=== PATIENT | female | born 1980 | race Caucasian/White ===

== ENCOUNTER 2016-07-12 14:30 | Emergency (ER) | payer MEDICAID ==
[2016-07-12] MEDS ORDERED: Prochlorperazine 10 MG/2 ML SDV IM ONE (14:43)
[2016-07-12] MEDS ORDERED: Ketorolac 30 MG/ML SDV IVPUSH ONE (14:43)
[2016-07-12] MEDS ORDERED: diphenhydrAMINE 50 MG/ML SDV IVPUSH ONE (14:43)
[2016-07-12] MEDS ORDERED: Sodium Chloride 0.9% 10 ML Syringe FLUSH PRN ×2 (14:43→14:48)
[2016-07-12] MEDS ORDERED: Sodium Chloride 0.9% 2.5 ML Syringe FLUSH PRN ×2 (14:43→14:48)
[2016-07-12] MEDS ORDERED: LORazepam 2 MG/ML MDV IVPUSH ONE (14:43)
[2016-07-12] MEDS ORDERED: Sodium Chloride 0.9% 1,000 ML IV ONE (14:43)
--- NOTE | 2016-07-12 14:47 | EDM.PDOC ---
ED HPI HEADACHE COMPLAINT - General Chief Complaint: Headache Stated Complaint: HEADACHE Time Seen by Provider: 07/12/16 14:42 Source of Information: Reports: Patient, Old records History Limitations: Reports: No limitations - History of Present Illness INITIAL COMMENTS - FREE TEXT/NARRATIVE: HISTORY AND PHYSICAL: [35-year-old female presenting with migraine headache] History of Present Illness: [Long-standing history of migraines. This headache began last night about 9:00pm Patient has had emesis several times. She is photophobic. She does take Excedrin Migraine at home. She has never been referred to a neurologist She has had CT scans in the past were negative] Review of Systems: As per history of present illness and below otherwise all systems reviewed and negative. Past medical history: As per history of present illness and as reviewed below otherwise noncontributory. Surgical history: As per history of present illness and as reviewed below otherwise noncontributory. Social history: No reported history of drug or alcohol abuse. Family history: As per history of present illness and as reviewed below otherwise noncontributory. Physical exam: Alert female squinting from the light HEENT: Atraumatic, normocehpalic, pupils reactive, negative for conjunctival pallor or scleral icterus, mucous membranes moist, throat clear, neck supple, nontender, trachea midline. Photophobic Lungs: Clear to auscultation, breath sounds equal bilaterally, chest non tender. Heart: S1S2, regular, negative for clicks, rubs, or JVD. Abdomen: Soft, nondistended, nontender. Negative for masses or hepatossplenmegaly. Negative for costovertebral tenderness. Nausea Pelvis: Stable nontender. Genitourinary: Deferred. Rectal: Deferred Extremities: Atraumatic, negative for cords or calf pain. Neurovascular unremarkable. Neuro: Awake, alert, oriented. Cranial nerves II through XII unremarkable. Cerebellum unremarkable. Motor and sensory unremarkable throughout. Exam nonfocal. Patient is improved with the therapy that she was given be discharged to referred to Dr. Flash Degroot neurology Diagnostics: [] Therapeutics: [Benadryl 25 mg IV saline 1Liter, ativan 1 mg Compazine 5 mg IM] Impression: [Migraine] Plan: [Referral to Dr. Anayeli Degroot Home and sleep Definitive disposition and diagnosis as appropriate pending reevaluation and review of above. Timing/Duration: Reports: hour(s): Location: Reports: generalized Severity: Reports: similar to past headaches Associated Symptoms: Reports: photophobia - Related Data Allergies/ADRs: Allergies Allergy/AdvReac Type Severity Reaction Status Date / Time Sulfa (Sulfonamide Allergy Hives Verified 07/12/16 14:38 Antibiotics) tetanus and diphtheria Allergy Other Verified 07/12/16 14:38 toxoids Home Meds: Home Meds Esomeprazole [NexIUM] ONETIME 07/12/16 [History] Social & Family History - Recreational Drug Use Recreational Drug Use: No ED ROS GENERAL - Review of Systems Review Of Systems: ROS reveals no pertinent complaints other than HPI. - Physical Exam Exam: See Below (See dictation) Course - Vital Signs Last Recorded V/S: Last Vital Signs Temp 35.8 C 07/12/16 14:39 Pulse 75 07/12/16 14:39 Resp 18 07/12/16 14:39 BP 165/91 H 07/12/16 14:39 Pulse Ox 98 07/12/16 14:39 - Orders/Labs/Meds Orders: Active Orders 24 hr Category Date Time Status Oxygen Therapy, ED [RC] ASDIRECTED Care 07/12/16 14:43 Active Oxygen Therapy, ED [RC] ASDIRECTED Care 07/12/16 14:48 Active COMPREHENSIVE METABOLIC PN,CMP [CHEM] Stat Lab 07/12/16 14:50 Received Sodium Chloride 0.9% [Normal Saline] 1,000 ml Med 07/12/16 14:43 Active IV STAT Sodium Chloride 0.9% [Saline Flush] Med 07/12/16 14:43 Active 10 ml FLUSH ASDIRECTED PRN Sodium Chloride 0.9% [Saline Flush] Med 07/12/16 14:48 Active 10 ml FLUSH ASDIRECTED PRN Sodium Chloride 0.9% [Saline Flush] Med 07/12/16 14:43 Active 2.5 ml FLUSH ASDIRECTED PRN Sodium Chloride 0.9% [Saline Flush] Med 07/12/16 14:48 Active 2.5 ml FLUSH ASDIRECTED PRN Saline Lock Insert [OM.PC] Stat Oth 07/12/16 14:43 Ordered Saline Lock Insert [OM.PC] Stat Oth 07/12/16 14:48 Ordered Medication Orders Sodium Chloride (Normal Saline) 1,000 mls @ 999 mls/hr IV STAT ONE Stop: 07/12/16 15:43 Last Admin: 07/12/16 15:05 Dose: 999 mls/hr Sodium Chloride (Saline Flush) 10 ml FLUSH ASDIRECTED PRN PRN Reason: Keep Vein Open Sodium Chloride (Saline Flush) 2.5 ml FLUSH ASDIRECTED PRN PRN Reason: Keep Vein Open Sodium Chloride (Saline Flush) 10 ml FLUSH ASDIRECTED PRN PRN Reason: Keep Vein Open Sodium Chloride (Saline Flush) 2.5 ml FLUSH ASDIRECTED PRN PRN Reason: Keep Vein Open Labs: Laboratory Tests 07/12/16 Range/Units 14:50 WBC 8.80 (4.0-11.0) K/uL RBC 5.66 (4.30-5.90) M/uL Hgb 16.3 H (12.0-16.0) g/dL Hct 48.3 H (36.0-46.0) % MCV 85.3 (80.0-98.0) fL MCH 28.8 (27.0-32.0) pg MCHC 33.7 (31.0-37.0) g/dL RDW Std Deviation 41.3 (28.0-62.0) fl RDW Coeff of Sofia 13 (11.0-15.0) % Plt Count 448 H (150-400) K/uL MPV 9.80 (7.40-12.00) fL Neut % (Auto) 56.9 (48.0-80.0) % Lymph % (Auto) 34.8 (16.0-40.0) % Patrick % (Auto) 7.4 (0.0-15.0) % Eos % (Auto) 0.8 (0.0-7.0) % Baso % (Auto) 0.1 (0.0-1.5) % Neut # (Auto) 5.0 (1.4-5.7) K/uL Lymph # (Auto) 3.1 H (0.6-2.4) K/uL Patrick # (Auto) 0.7 (0.0-0.8) K/uL Eos # (Auto) 0.1 (0.0-0.7) K/uL Baso # (Auto) 0.0 (0.0-0.1) K/uL Nucleated RBC % 0.0 /100WBC Nucleated RBCs # 0 K/uL Meds: Medications Generic Name Dose Route Start Last Admin Trade Name Freq PRN Reason Stop Dose Admin Sodium Chloride 1,000 mls @ 999 mls/hr 07/12/16 14:43 07/12/16 15:05 Normal Saline IV 07/12/16 15:43 999 mls/hr STAT ONE Administration Sodium Chloride 10 ml 07/12/16 14:43 Saline Flush FLUSH ASDIRECTED PRN Keep Vein Open Sodium Chloride 2.5 ml 07/12/16 14:43 Saline Flush FLUSH ASDIRECTED PRN Keep Vein Open Sodium Chloride 10 ml 07/12/16 14:48 Saline Flush FLUSH ASDIRECTED PRN Keep Vein Open Sodium Chloride 2.5 ml 07/12/16 14:48 Saline Flush FLUSH ASDIRECTED PRN Keep Vein Open Discontinued Medications Generic Name Dose Route Start Last Admin Trade Name Freq PRN Reason Stop Dose Admin Diphenhydramine HCl 25 mg 07/12/16 14:43 07/12/16 15:02 Benadryl IVPUSH 07/12/16 14:44 25 mg ONETIME ONE Administration Ketorolac Tromethamine 30 mg 07/12/16 14:43 07/12/16 15:07 Toradol IVPUSH 07/12/16 14:44 30 mg ONETIME ONE Administration Lorazepam 1 mg 07/12/16 14:43 07/12/16 15:09 Ativan IVPUSH 07/12/16 14:44 1 mg ONETIME ONE Administration Prochlorperazine Edisylate 5 mg 07/12/16 14:43 07/12/16 15:10 Compazine IM 07/12/16 14:44 5 mg ONETIME ONE Administration Departure - Departure Time of Disposition: 15:23 Disposition: Home, Self-Care 01 Condition: good Clinical Impression: Migraine Qualifiers: Migraine type: unspecified Status migrainosus presence: without status migrainosus Intractability: not intractable Qualified Code(s): G43.909 - Migraine, unspecified, not intractable, without status migrainosus Referrals: PCP,None [Primary Care Provider] - Marburger,Anayeli, MD [Physician] - Forms: ED Department Discharge Additional Instructions: The following information is given to patients seen in the emergency department who are being discharged to home. This information is to outline your options for follow-up care. We provide all patients seen in our emergency department with a follow-up referral. The need for follow-up, as well as the timing and circumstances, are variable depending upon the specifics of your emergency department visit. If you don't have a primary care physician on staff, we will provide you with a referral. We always advise you to contact your personal physician following an emergency department visit to inform them of the circumstance of the visit and for follow-up with them and/or the need for any referrals to a consulting specialist. The emergency department will also refer you to a specialist when appropriate. This referral assures that you have the opportunity for followup care with a specialist. All of these measure are taken in an effort to provide you with optimal care, which includes your followup. Under all circumstances we always encourage you to contact your private physician who remains a resource for coordinating your care. When calling for followup care, please make the office aware that this follow-up is from your recent emergency room visit. If for any reason you are refused follow-up, please contact the [facility] emergency department at and asked to speak to the emergency department charge nurse. Return for reevaluation should you have any flareup worsening of condition Dr. Degroot's office should call you if not please call for an appointment [facility] [address], [address] [place] [address] - My Orders Last 24 Hours: My Active Orders 07/12/16 14:43 Oxygen Therapy, ED [RC] ASDIRECTED Sodium Chloride 0.9% [Normal Saline] 1,000 ml IV STAT Sodium Chloride 0.9% [Saline Flush] 10 ml FLUSH ASDIRECTED PRN Sodium Chloride 0.9% [Saline Flush] 2.5 ml FLUSH ASDIRECTED PRN Saline Lock Insert [OM.PC] Stat 07/12/16 14:48 Oxygen Therapy, ED [RC] ASDIRECTED Sodium Chloride 0.9% [Saline Flush] 10 ml FLUSH ASDIRECTED PRN Sodium Chloride 0.9% [Saline Flush] 2.5 ml FLUSH ASDIRECTED PRN Saline Lock Insert [OM.PC] Stat 07/12/16 14:50 COMPREHENSIVE METABOLIC PN,CMP [CHEM] Stat - Assessment/Plan Last 24 Hours: My Active Orders 07/12/16 14:43 Oxygen Therapy, ED [RC] ASDIRECTED Sodium Chloride 0.9% [Normal Saline] 1,000 ml IV STAT Sodium Chloride 0.9% [Saline Flush] 10 ml FLUSH ASDIRECTED PRN Sodium Chloride 0.9% [Saline Flush] 2.5 ml FLUSH ASDIRECTED PRN Saline Lock Insert [OM.PC] Stat 07/12/16 14:48 Oxygen Therapy, ED [RC] ASDIRECTED Sodium Chloride 0.9% [Saline Flush] 10 ml FLUSH ASDIRECTED PRN Sodium Chloride 0.9% [Saline Flush] 2.5 ml FLUSH ASDIRECTED PRN Saline Lock Insert [OM.PC] Stat 07/12/16 14:50 COMPREHENSIVE METABOLIC PN,CMP [CHEM] Stat
[2016-07-12 15:26] LABS: CHLORIDE,CL 106 mmol/L (98-110); SODIUM,NA 140 mmol/L (136-146)
[2016-07-12 18:16] VITALS: BP 132/74
== END 2016-07-12 16:05 | disposition home or self-care (01) ==
LOC: MW.ED 14:30
DX: G43.909 Migraine, unspecified, not intractable, without status migrainosus (principal)
CPT/HCPCS: 80053; 85025; 96361; 96372; 96374; 96375; 99284; J0780; J1200; J1885; J2060; J7040

== ENCOUNTER 2016-07-15 17:02 | Emergency (ER) | payer MEDICAID ==
[2016-07-15] MEDS ORDERED: Octyl 2-Cyanoacrylate 1 Tube TOP ONE (17:19)
--- NOTE | 2016-07-15 17:33 | EDM.PDOC ---
ED HPI Skin/Rash - General Chief Complaint: Laceration Stated Complaint: PT CUT LT THUMB Time Seen by Provider: 07/15/16 17:05 Source: Reports: Patient History Limitations: Reports: No limitations - History of Present Illness INITIAL COMMENTS - FREE TEXT/NARRATIVE: History of present illness: [35-year-old female presenting with laceration to the thumb of left hand. Laceration is on the lateral side of the thumb. this is then occurred while peeling potatoes with the appearing knife Laceration is superficial. Patient indicates that she is allergic to tetanus immunization and is declining to have one.] Review of systems: As per history of present illness and below otherwise all systems reviewed and negative. Past medical history: As per history of present illness and as reviewed below otherwise noncontributory. Surgical history: As per history of present illness and as reviewed below otherwise noncontributory. Social history: No reported history of drug or alcohol abuse. Family history: As per history of present illness and as reviewed below otherwise noncontributory. Physical exam: HEENT: Atraumatic, normocephalic, pupils reactive, negative for conjunctival pallor or scleral icterus, mucous membranes moist, throat clear, neck supple, nontender, trachea midline. Lungs: Clear to auscultation, breath sounds equal bilaterally, chest nontender. Heart: S1S2, regular, negative for clicks, rubs, or JVD. Abdomen: Soft, nondistended, nontender. Negative for masses or hepatosplenomegaly. Negative for costovertebral tenderness. Pelvis: Stable nontender. Genitourinary: Deferred. Rectal: Deferred. Extremities: Finger laceration as noted below, negative for cords or calf pain. Neurovascular unremarkable. Neuro: Awake, alert, oriented. Cranial nerves II through XII unremarkable. Cerebellum unremarkable. Motor and sensory unremarkable throughout. Exam nonfocal. Hand cleaned and in the usual fashion and dried, edges of laceration approximated and sealed with Dermabond area. Laceration is very superficial and runs circumferentially around half of the finger. Diagnostics: [] Therapeutics: [Wound cleaned Dermabond] Impression: [Superficial laceration ,1.5cm] Plan: [Followup when necessary] Definitive disposition and diagnosis as appropriate pending reevaluation and review of above. - Related Data Allergies Allergy/AdvReac Type Severity Reaction Status Date / Time Sulfa (Sulfonamide Allergy Hives Verified 07/15/16 17:10 Antibiotics) tetanus and diphtheria Allergy Other Verified 07/15/16 17:10 toxoids Home Meds: Ambulatory Orders Medication Instructions Recorded Confirmed Esomeprazole [NexIUM] ONETIME 07/12/16 Past Medical History Neurological History: Reports: Headaches, chronic, Migraines - Infectious Disease History Infectious Disease History: Reports: Chicken pox - Past Surgical History GI Surgical History: Reports: Cholecystectomy Social & Family History - Family History Family Medical History: Noncontributory - Tobacco Use Smoking Status *Q: Never Smoker - Caffeine Use Caffeine Use: Reports: Coffee, Soda - Recreational Drug Use Recreational Drug Use: No ED ROS GENERAL - Review of Systems Review Of Systems: See Below (See history of present illness) ED EXAM, SKIN/RASH Exam: See Below (See history of present illness) Course - Vital Signs Last Recorded V/S: Last Vital Signs Temp 37.2 C 07/15/16 17:10 Pulse 85 07/15/16 17:10 Resp 18 07/15/16 17:10 BP 136/98 H 07/15/16 17:10 Pulse Ox 99 07/15/16 17:10 - Orders/Labs/Meds Meds: Medications Discontinued Medications Generic Name Dose Route Start Last Admin Trade Name Freq PRN Reason Stop Dose Admin Octyl Cyanoacrylate 1 applic 07/15/16 17:19 Dermabond Advance TOP 07/15/16 17:20 ONETIME ONE Departure - Departure Time of Disposition: 17:34 Disposition: Home, Self-Care 01 Condition: good Clinical Impression: Broken skin Instructions: Stitches, Ritika, or Adhesive Wound Closure, [id number] Forms: ED Department Discharge Additional Instructions: The following information is given to patients seen in the emergency department who are being discharged to home. This information is to outline your options for follow-up care. We provide all patients seen in our emergency department with a follow-up referral. The need for follow-up, as well as the timing and circumstances, are variable depending upon the specifics of your emergency department visit. If you don't have a primary care physician on staff, we will provide you with a referral. We always advise you to contact your personal physician following an emergency department visit to inform them of the circumstance of the visit and for follow-up with them and/or the need for any referrals to a consulting specialist. The emergency department will also refer you to a specialist when appropriate. This referral assures that you have the opportunity for follow-up care with a specialist. All of these measure are taken in an effort to provide you with optimal care, which includes your follow-up. Under all circumstances we always encourage you to contact your private physician who remains a resource for coordinating your care. When calling for follow-up care, please make the office aware that this follow-up is from your recent emergency room visit. If for any reason you are refused follow-up, please contact the [facility] Emergency Department at and asked to speak to the emergency department charge nurse. Keep area clean and dry as possible Followup with PCP 1-2 days Return to ED as needed as discussed
[2016-07-15 18:53] VITALS: BP 125/75
== END 2016-07-15 17:50 | disposition home or self-care (01) ==
LOC: MW.ED 17:02
DX: S61.012A Laceration without foreign body of left thumb without damage to nail, initial encounter (principal); Z90.49 Acquired absence of other specified parts of digestive tract; W26.0XXA Contact with knife, initial encounter
CPT/HCPCS: 12001; 99283; A9270; 99282

== ENCOUNTER 2017-08-26 08:52 | Emergency (ER) | payer MEDICAID ==
[2017-08-26] MEDS ORDERED: Metoclopramide 10 MG/2 ML SDV IV ONE (08:55)
[2017-08-26] MEDS ORDERED: diphenhydrAMINE 50 MG/ML SDV IVPUSH ONE (08:55)
[2017-08-26] MEDS ORDERED: Ondansetron 4 MG/2 ML SDV IVPUSH ONE (08:55)
[2017-08-26] MEDS ORDERED: Ketorolac 30 MG/ML SDV IVPUSH ONE (08:55)
[2017-08-26] MEDS ORDERED: Sodium Chloride 0.9% 1,000 ML IV ONE (08:55)
--- NOTE | 2017-08-26 09:02 | EDM.PDOC ---
ED HPI GENERAL MEDICAL PROBLEM - General Chief Complaint: Headache Stated Complaint: MC Time Seen by Provider: 08/26/17 08:56 - History of Present Illness INITIAL COMMENTS - FREE TEXT/NARRATIVE: HISTORY AND PHYSICAL: History of present illness: Patient 36-year-old white female presents with concern of migraine headache she states these are usually controlled with [id number] medication and medicinal oils this 1 has not resolved that she has had similar episodes in the past and has had a long history of chronic headaches associated light sensitivity and nausea. She denies trauma denies fever chills neck stiffness or other complaints Review of systems: As per history of present illness and below otherwise all systems reviewed and negative. Past medical history: As per history of present illness and as reviewed below otherwise noncontributory. Surgical history: As per history of present illness and as reviewed below otherwise noncontributory. Social history: No reported history of drug or alcohol abuse. Family history: As per history of present illness and as reviewed below otherwise noncontributory. Physical exam: HEENT: Atraumatic, normocephalic, pupils reactive, negative for conjunctival pallor or scleral icterus, mucous membranes moist, throat clear, neck supple, nontender, trachea midline. Lungs: Clear to auscultation, breath sounds equal bilaterally, chest nontender. Heart: S1S2, regular, negative for clicks, rubs, or JVD. Abdomen: Soft, nondistended, nontender. Negative for masses or hepatosplenomegaly. Negative for costovertebral tenderness. Pelvis: Stable nontender. Genitourinary: Deferred. Rectal: Deferred. Extremities: Atraumatic, negative for cords or calf pain. Neurovascular unremarkable. Neuro: Awake, alert, oriented. Cranial nerves II through XII unremarkable. Cerebellum unremarkable. Motor and sensory unremarkable throughout. Exam nonfocal. Diagnostics: None Therapeutics: Normal saline 1 L bolus and Toradol 30 IV Reglan 10 IV Benadryl 50 IV Zofran 4 IV Impression: #1 migraine headache Definitive disposition and diagnosis as appropriate pending reevaluation and review of above. - Related Data Allergies Allergy/AdvReac Type Severity Reaction Status Date / Time Sulfa (Sulfonamide Allergy Hives Verified 07/15/16 17:10 Antibiotics) tetanus and diphtheria Allergy Other Verified 07/15/16 17:10 toxoids Home Meds: Home Meds Esomeprazole [NexIUM] ONETIME 07/12/16 [History] Past Medical History Neurological History: Reports: Headaches, Chronic, Migraines - Infectious Disease History Infectious Disease History: Reports: Chicken Pox - Past Surgical History GI Surgical History: Reports: Cholecystectomy Social & Family History - Family History Family Medical History: Noncontributory - Caffeine Use Caffeine Use: Reports: Coffee, Soda ED ROS GENERAL - Review of Systems Review Of Systems: ROS reveals no pertinent complaints other than HPI. ED EXAM, GENERAL - Physical Exam Exam: See Below (See dictation) Course - Orders/Labs/Meds Orders: Active Orders 24 hr Category Date Time Status Sodium Chloride 0.9% [Normal Saline] 1,000 ml Med 08/26/17 08:55 Active IV STAT Medication Orders Sodium Chloride (Normal Saline) 1,000 mls @ 999 mls/hr IV STAT ONE Stop: 08/26/17 09:55 Meds: Medications Generic Name Dose Route Start Last Admin Trade Name Freq PRN Reason Stop Dose Admin Sodium Chloride 1,000 mls @ 999 mls/hr 08/26/17 08:55 Normal Saline IV 08/26/17 09:55 STAT ONE Discontinued Medications Generic Name Dose Route Start Last Admin Trade Name Freq PRN Reason Stop Dose Admin Diphenhydramine HCl 50 mg 08/26/17 08:55 Benadryl IVPUSH 08/26/17 08:56 ONETIME ONE Ketorolac Tromethamine 30 mg 08/26/17 08:55 Toradol IVPUSH 08/26/17 08:56 ONETIME ONE Metoclopramide HCl 10 mg 08/26/17 08:55 Reglan IV 08/26/17 08:56 ONETIME ONE Ondansetron HCl 4 mg 08/26/17 08:55 Zofran IVPUSH 08/26/17 08:56 ONETIME ONE Departure - Departure Time of Disposition: 09:01 Disposition: Home, Self-Care 01 Condition: Good Clinical Impression: Migraine - Discharge Information Referrals: Criss Diaz COLLECTIONS ASSISTANT [Primary Care Provider] - Additional Instructions: The following information is given to patients seen in the emergency department who are being discharged to home. This information is to outline your options for follow-up care. We provide all patients seen in our emergency department with a follow-up referral. The need for follow-up, as well as the timing and circumstances, are variable depending upon the specifics of your emergency department visit. If you don't have a primary care physician on staff, we will provide you with a referral. We always advise you to contact your personal physician following an emergency department visit to inform them of the circumstance of the visit and for follow-up with them and/or the need for any referrals to a consulting specialist. The emergency department will also refer you to a specialist when appropriate. This referral assures that you have the opportunity for followup care with a specialist. All of these measure are taken in an effort to provide you with optimal care, which includes your followup. Under all circumstances we always encourage you to contact your private physician who remains a resource for coordinating your care. When calling for followup care, please make the office aware that this follow-up is from your recent emergency room visit. If for any reason you are refused follow-up, please contact the [facility] emergency department at and asked to speak to the emergency department charge nurse. Follow-up primary medical doctor as needed as discussed return as needed as discussed - My Orders Last 24 Hours: My Active Orders 08/26/17 08:55 Sodium Chloride 0.9% [Normal Saline] 1,000 ml IV STAT - Assessment/Plan Last 24 Hours: My Active Orders 08/26/17 08:55 Sodium Chloride 0.9% [Normal Saline] 1,000 ml IV STAT
[2017-08-26 10:37] VITALS: BP 122/80
== END 2017-08-26 10:39 | disposition home or self-care (01) ==
LOC: MW.ED 08:52
DX: G43.909 Migraine, unspecified, not intractable, without status migrainosus (principal); Z88.2 Allergy status to sulfonamides; Z88.7 Allergy status to serum and vaccine
CPT/HCPCS: 96361; 96374; 96375; 99284; J1200; J1885; J2405; J2765; J7040; 99283

== ENCOUNTER 2020-04-09 08:21 | Observation (INO) | payer BC ==
[2020-04-09] MEDS ORDERED: Sodium Chloride 0.9% 2.5 ML Syringe FLUSH PRN (08:52)
[2020-04-09] MEDS ORDERED: Sodium Chloride 0.9% 10 ML Syringe FLUSH PRN (08:52)
[2020-04-09] MEDS ORDERED: cefTRIAXone 1 GM in Sodium Chloride 0.9% 100 ML IV ONE (08:52)
[2020-04-09] MEDS ORDERED: Lactated Ringers 1,000 ML IV SCH ×2 (09:00→12:15)
--- NOTE | 2020-04-09 09:16 | EDM.PDOC ---
ED HPI GENERAL MEDICAL PROBLEM - General Chief Complaint: Genitourinary Problem Stated Complaint: POSSIBLE BLADDER INFECTION Time Seen by Provider: 04/09/20 08:37 - History of Present Illness INITIAL COMMENTS - FREE TEXT/NARRATIVE: CHIEF COMPLAINT(S): Darker urine HISTORY OF PRESENT ILLNESS: This is a 39-year-old woman and without any significant past medical history who comes to the emergency department with a chief complaint of darker urine. The patient states that for approximately 8 days now she has been experiencing decreased p.o. intake, increased thirst and nausea off and on. She states that for the last 3 days she has noticed that her urine has turned darker and she has had decreased urinary output. She denies any increased frequency but states that she does have some associated sharp shooting pain that goes from her right flank anteriorly to her right lower quadrant. She describes this pain as sharp rated 4 out of 10. She states that she tried Excedrin which did help mildly. She denies any exacerbating symptoms. She denies any vaginal bleeding or vaginal discharge. She states that she is not sexually active. She denies any fevers or chills. She states that she has never had this before. She denies any history of diabetes mellitus REVIEW OF SYSTEMS: Constitutional: Denies fever, chills. Eyes: Denies eye pain Ears, Nose, Mouth, & Throat: Denies earache Cardiovascular: Denies chest pain Respiratory: Denies shortness of breath Gastrointestinal: Positive for right flank and right anterior abdominal tenderness, nausea. Denies vomiting, hematochezia, hematemesis, bilious emesis, melena Genitourinary: Positive for darker urine. Denies hematuria, dysuria, vaginal bleeding, vaginal discharge Skin:Denies a rash Neurological: Denies blurred vision Psychiatric: Denies depression PAST MEDICAL HISTORY: As per history of present illness and as reviewed below otherwise noncontributory. SURGICAL HISTORY: As per history of present illness and as reviewed below otherwise noncontributory. SOCIAL HISTORY: As per history of present illness and as reviewed below otherwise noncontributory. FAMILY HISTORY: As per history of present illness and as reviewed below otherwise noncontributory. EXAMINATION OF ORGAN SYSTEMS/BODY AREAS: Constitutional: Blood pressure was 139/92, heart rate 130, respiratory 16 with an oxygen saturation of 97%. Temperature temporally was 35.6. General: Young woman who does not appear to be in acute distress. Psychiatric: Appropriate mood and affect. Eyes: No scleral icterus or conjunctival erythema ENMT: Moist mucous membranes. No pharyngeal erythema Cardiovascular: Tachycardic but regular no gallops, murmurs, or rubs. Bilateral upper extremity pulses symmetric and intact. No peripheral edema. No JVD. Respiratory: Lungs clear to auscultation bilaterally. No wheezes, rales, or rhonchi. Gastrointestinal: Soft, non-tender, non-distended. Normoactive bowel sounds no obvious flank tenderness or pain. Genitourinary: No suprapubic tenderness no CVA tenderness. Musculoskeletal: Normal range of motion. Skin: No lesions or abrasions. Neurological: Alert, GCS 15 MEDICAL DECISION MAKING AND COURSE IN THE ED WITH INTERPRETATION/REVIEW OF DIAGNOSTIC STUDIES: This is a 39-year-old woman and without any significant past medical history who comes to the emergency department with 1 week of decreased urinary output, darkening of her urine, and right flank pain that radiates anteriorly. At this time differential includes pyelonephritis versus nephrolithiasis. Given her tachycardia and duration of symptoms sepsis is a consideration therefore we will undergo a septic work-up. We will obtain CBC, CMP, CPK, UA, urine culture, lactic acid, blood cultures. We will provide the patient with 1 L of lactated Ringer's at this time as the patient does not hypotensive but is tachycardic to the 130s. We will reevaluate for completing the 30 cc/kg bolus after lactate is obtained. We will start the patient on ceftriaxone. Will obtain a CT abdomen pelvis without contrast. The patient stated that she does not want any pain medications at this time. Therefore we will reevaluate. Laboratory: CBC reveals hemoconcentration with a WBC count of 12.67, hemoglobin of 16.2, hematocrit of 49.1 with normal platelets. Coags are within normal limits. Lactic acid is 1.6. CMP reveals hyponatremia at 134, hypokalemia at 3.1, normal bicarbonate at 24.2 normal creatinine at 1. Hyperglycemia at 122. Transaminitis with an AST of 119 ALT of 118 and alkaline phosphatase of 273. CPK is 65. Covid is negative. Urinalysis was a clean catch and was trace for leukocyte esterase, negative for nitrites, and negative for blood. WBC count 4-6. Interpretation: negative. The radiological images were viewed by myself along with reading the report from the radiologist. CT abdomen pelvis with and without contrast does not reveal any evidence of nephrolithiasis. There was normal kidneys. There is hepatic steatosis moderately prominent. There is mild nonspecific splenomegaly otherwise no other abnormality. After labs and imaging I did reevaluate the patient. At this time her heart rate continued to remain tachycardic. Therefore at this time I did have a discussion with the patient regarding any other causes. The patient denies any recent travel or recent surgery. She denies any history of clots in her lungs or legs but states that she has had high clotting factors in the past and they did not know why. She states that she had imaging at that time which did not show any clots. She denies any chest pain, shortness of breath or family history or personal history of CAD. Patient is young however given her persistent tachycardia will obtain an EKG a D-dimer and a troponin. Differential for tachycardia also includes hyperthyroidism and dehydration given the hemoconcentration on CBC. Will obtain TSH and T4. Twelve-lead EKG interpreted by myself. Sinus tachycardia at a rate of 116 beats per minute. Normal axis. [place] interval is 157 ms. QRS duration is [address] segments are normal without elevations or depressions. No Q waves present. Hypertrophy not noted. No prior EKGs. Interpretation: Sinus tachycardia Troponin was negative. D-dimer was elevated 7.08. TSH is normal T4 is normal. Given the elevated D-dimer and persistent tachycardia I did discuss with patient like to obtain a CT. She was amenable to this plan. Therefore we will a CT angio. The radiological images were viewed by myself along with reading the report from the radiologist. CT thorax with pulmonary embolism protocol does not reveal any evidence of acute PE or other obvious abnormality. At this point I did discuss the results with the patient. The patient at this time was tachycardic at 10 8-1 10. I described to her that at this time I do not know exactly what is causing her persistent tachycardia or the right flank pain. She still denied any current pain. I discussed that I would like to admit her for observation given the persistent tachycardia. She was amenable to this plan. I contacted Dr. Guadalupe who accepted the patient for admission. DISPOSITION: The patient was admitted for telemetry observation in stable co ndition CONDITION: Fair PROCEDURES: None FINAL IMPRESSION(S)/DIAGNOSES: 1. Acute right flank pain, unknown etiology 2. Acute persistent tachycardia, unknown etiology Morgan Nunez M.D. general Pain Score (Numeric/FACES): 4 - Related Data Allergies Allergy/AdvReac Type Severity Reaction Status Date / Time Sulfa (Sulfonamide Allergy Hives Verified 04/09/20 08:42 Antibiotics) tetanus and diphtheria Allergy Other Verified 04/09/20 08:42 toxoids Home Meds: Home Meds Omeprazole Magnesium [Prilosec] 10 mg PO DAILY 04/09/20 [History] Past Medical History HEENT History: Reports: None Cardiovascular History: Reports: None Respiratory History: Reports: None Gastrointestinal History: Reports: Other (See Below) Other Gastrointestinal History: acid reflux Genitourinary History: Reports: None [employer] History: Reports: None Musculoskeletal History: Reports: None Neurological History: Reports: Headaches, Chronic, Migraines Psychiatric History: Reports: None Endocrine/Metabolic History: Reports: None Hematologic History: Reports: None Immunologic History: Reports: None Oncologic (Cancer) History: Reports: None Dermatologic History: Reports: None - Infectious Disease History Infectious Disease History: Reports: Chicken Pox - Past Surgical History Head Surgeries/Procedures: Reports: None HEENT Surgical History: Reports: None Cardiovascular Surgical History: Reports: None Respiratory Surgical History: Reports: None GI Surgical History: Reports: Cholecystectomy Female Surgical History: Reports: None Endocrine Surgical History: Reports: None Neurological Surgical History: Reports: None Musculoskeletal Surgical History: Reports: None Oncologic Surgical History: Reports: None Dermatological Surgical History: Reports: None Social & Family History - Family History Family Medical History: No Pertinent Family History - Tobacco Use Tobacco Use Status *Q: Never Tobacco User - Caffeine Use Caffeine Use: Reports: None - Recreational Drug Use Recreational Drug Use: No ED ROS GENERAL - Review of Systems Review Of Systems: See Below ED EXAM, RENAL/ - Physical Exam Exam: See Below Course - Vital Signs Last Recorded V/S: Last Vital Signs Temp 36.3 C 04/09/20 15:54 Pulse 110 H 04/09/20 15:54 Resp 16 04/09/20 15:54 BP 127/74 04/09/20 15:54 Pulse Ox 99 04/09/20 15:54 - Orders/Labs/Meds Orders: Active Orders 24 hr Category Date Time Status Blood Pressure Mgt: Sepsis [RC] [id number] Care 04/09/20 08:54 Active Cardiac Monitoring [RC] . DIRECTED Care 04/09/20 15:12 Active Cardiac Monitoring [RC] CONTINUOUS Care 04/09/20 08:53 Active Overnight Pulse Oximetry [RC] Click to Edit Care 04/09/20 08:54 Active CULTURE BLOOD [BC] Stat Lab 04/09/20 09:04 Received CULTURE BLOOD [BC] Stat Lab 04/09/20 09:20 Received CULTURE URINE [RM] Stat Lab 04/09/20 09:47 Received Lactated Ringers [Ringers, Lactated] 1,000 ml Med 04/09/20 12:15 Active IV .BOLUS Lactated Ringers [Ringers, Lactated] 1,000 ml Med 04/09/20 09:00 Active IV ASDIRECTED Sodium Chloride 0.9% [Saline Flush] Med 04/09/20 08:52 Active 10 ml FLUSH ASDIRECTED PRN Sodium Chloride 0.9% [Saline Flush] Med 04/09/20 08:52 Active 2.5 ml FLUSH ASDIRECTED PRN Blood Culture x2 Reflex Set [OM.PC] Stat Ot 04/09/20 08:52 Ordered Pulse Oximetry Continuous Monitoring [OM.PC] Routine Oth 04/09/20 08:52 Ordered Saline Lock Insert [OM.PC] Stat Ot 04/09/20 08:52 Ordered Severe Sepsis Onset Time [OM.PC] Stat Ot 04/09/20 08:52 Ordered Medication Orders Lactated Ringer's (Ringers, Lactated) 1,000 mls @ 3,000 mls/hr IV ASDIRECTED HERMAN Last Admin: 04/09/20 09:05 Dose: 3,000 mls/hr Documented by: UYEN Lactated Ringer's (Ringers, Lactated) 1,000 mls @ 999 mls/hr IV .BOLUS HERMAN Last Admin: 04/09/20 12:04 Dose: 999 mls/hr Documented by: DANAY Sodium Chloride (Saline Flush) 10 ml FLUSH ASDIRECTED PRN PRN Reason: Keep Vein Open Last Admin: 04/09/20 09:25 Dose: 10 ml Documented by: UYEN Sodium Chloride (Saline Flush) 2.5 ml FLUSH ASDIRECTED PRN PRN Reason: Keep Vein Open Last Admin: 04/09/20 09:26 Dose: 2.5 ml Documented by: UYEN Labs: Laboratory Tests 04/09/20 04/09/20 04/09/20 Range/Units 09:04 09:04 09:04 WBC 12.67 H (4.0-11.0) K/uL RBC 6.26 H (4.30-5.90) M/uL Hgb 16.2 H (12.0-16.0) g/dL Hct 49.1 H (36.0-46.0) % MCV 78.4 L (80.0-98.0) fL MCH 25.9 L (27.0-32.0) pg MCHC 33.0 (31.0-37.0) g/dL RDW Std Deviation 44.2 (28.0-62.0) fl RDW Coeff of Sofia 15 (11.0-15.0) % Plt Count 284 (150-400) K/uL MPV 10.00 (7.40-12.00) fL Add Manual Diff YES Neutrophils % (Manual) 44 L (48.0-80.0) % Band Neutrophils % 4 % Lymphocytes % (Manual) 45 H (16.0-40.0) % Monocytes % (Manual) 7 (0.0-15.0) % Nucleated RBC % 0.0 /100WBC Absolute Seg Neuts 5.6 (1.4-5.7) Band Neutrophils # 0.5 Lymphocytes # (Manual) 5.7 H (0.6-2.4) Monocytes # (Manual) 0.9 H (0.0-0.8) Nucleated RBCs # 0 K/uL INR D-Dimer, Quantitative (0.0-0.50) mg/L FEU Lactate 1.6 (0.20-2.00) mmol/L Sodium 134 L (136-145) mmol/L Potassium 3.1 L (3.5-5.1) mmol/L Chloride 98 (98-107) mmol/L Carbon Dioxide 24.2 (21.0-32.0) mmol/L BUN 6 L (7.0-18.0) mg/dL Creatinine 1.0 (0.6-1.0) mg/dL Est Cr Clr Drug Dosing 60.92 mL/min Estimated GFR (MDRD) > 60.0 ml/min Glucose 122 H (74-106) mg/dL Calcium 8.9 (8.5-10.1) mg/dL Magnesium (1.8-2.4) mg/dL Total Bilirubin 0.6 (0.2-1.0) mg/dL AST 119 H (15-37) IU/L ALT 118 H (14-63) IU/L Alkaline Phosphatase 273 H (46-116) U/L Creatine Kinase (26-308) U/L Troponin I (0.000-0.056) ng/mL Total Protein 8.4 H (6.4-8.2) g/dL Albumin 3.6 (3.4-5.0) g/dL Globulin 4.8 H (2.6-4.0) g/dL Albumin/Globulin Ratio 0.8 L (0.9-1.6) Free T4 (0.76-1.46) ng/dL TSH 3rd Generation (0.36-3.74) uIU/mL Urine Color Urine Appearance Urine pH (5.0-8.0) Ur Specific [place] (1.001-1.035) Urine Protein (NEGATIVE) mg/dL Urine Glucose (UA) (NEGATIVE) mg/dL Urine Ketones (NEGATIVE) mg/dL Urine Occult Blood (NEGATIVE) Urine Nitrite (NEGATIVE) Urine Bilirubin (NEGATIVE) Urine Urobilinogen (<2.0) EU/dL Ur Leukocyte Esterase (NEGATIVE) Urine RBC (0-2/HPF) Urine WBC (0-5/HPF) Ur Epithelial Cells (NONE-FEW) Urine Bacteria (NEGATIVE) Urine HCG, Qual (NEGATIVE) Urine Opiates Screen (NEGATIVE) Ur Oxycodone Screen (NEGATIVE) Urine Methadone Screen (NEGATIVE) Ur Barbiturates Screen (NEGATIVE) Ur Phencyclidine Scrn (NEGATIVE) Ur Amphetamine Screen (NEGATIVE) U Methamphetamines Scrn (NEGATIVE) U Benzodiazepines Scrn (NEGATIVE) U Cocaine Metab Screen (NEGATIVE) U Marijuana (THC) Screen (NEGATIVE) SARS-CoV-2 RNA (JOSE ANTONIO) (NEGATIVE) 04/09/20 04/09/20 04/09/20 Range/Units 09:04 09:04 09:04 WBC (4.0-11.0) K/uL RBC (4.30-5.90) M/uL Hgb (12.0-16.0) g/dL Hct (36.0-46.0) % MCV (80.0-98.0) fL MCH (27.0-32.0) pg MCHC (31.0-37.0) g/dL RDW Std Deviation (28.0-62.0) fl RDW Coeff of Sofia (11.0-15.0) % Plt Count (150-400) K/uL MPV (7.40-12.00) fL Add Manual Diff Neutrophils % (Manual) (48.0-80.0) % Band Neutrophils % % Lymphocytes % (Manual) (16.0-40.0) % Monocytes % (Manual) (0.0-15.0) % Nucleated RBC % /100WBC Absolute Seg Neuts (1.4-5.7) Band Neutrophils # Lymphocytes # (Manual) (0.6-2.4) Monocytes # (Manual) (0.0-0.8) Nucleated RBCs # K/uL INR D-Dimer, Quantitative 7.08 H (0.0-0.50) mg/L FEU Lactate (0.20-2.00) mmol/L Sodium (136-145) mmol/L Potassium (3.5-5.1) mmol/L Chloride (98-107) mmol/L Carbon Dioxide (21.0-32.0) mmol/L BUN (7.0-18.0) mg/dL Creatinine (0.6-1.0) mg/dL Est Cr Clr Drug Dosing mL/min Estimated GFR (MDRD) ml/min Glucose (74-106) mg/dL Calcium (8.5-10.1) mg/dL Magnesium (1.8-2.4) mg/dL Total Bilirubin (0.2-1.0) mg/dL AST (15-37) IU/L ALT (14-63) IU/L Alkaline Phosphatase (46-116) U/L Creatine Kinase 65 (26-308) U/L Troponin I < 0.050 (0.000-0.056) ng/mL Total Protein (6.4-8.2) g/dL Albumin (3.4-5.0) g/dL Globulin (2.6-4.0) g/dL Albumin/Globulin Ratio (0.9-1.6) Free T4 (0.76-1.46) ng/dL TSH 3rd Generation (0.36-3.74) uIU/mL Urine Color Urine Appearance Urine pH (5.0-8.0) Ur Specific [place] (1.001-1.035) Urine Protein (NEGATIVE) mg/dL Urine Glucose (UA) (NEGATIVE) mg/dL Urine Ketones (NEGATIVE) mg/dL Urine Occult Blood (NEGATIVE) Urine Nitrite (NEGATIVE) Urine Bilirubin (NEGATIVE) Urine Urobilinogen (<2.0) EU/dL Ur Leukocyte Esterase (NEGATIVE) Urine RBC (0-2/HPF) Urine WBC (0-5/HPF) Ur Epithelial Cells (NONE-FEW) Urine Bacteria (NEGATIVE) Urine HCG, Qual (NEGATIVE) Urine Opiates Screen (NEGATIVE) Ur Oxycodone Screen (NEGATIVE) Urine Methadone Screen (NEGATIVE) Ur Barbiturates Screen (NEGATIVE) Ur Phencyclidine Scrn (NEGATIVE) Ur Amphetamine Screen (NEGATIVE) U Methamphetamines Scrn (NEGATIVE) U Benzodiazepines Scrn (NEGATIVE) U Cocaine Metab Screen (NEGATIVE) U Marijuana (THC) Screen (NEGATIVE) SARS-CoV-2 RNA (JOSE ANTONIO) (NEGATIVE) 04/09/20 04/09/20 04/09/20 Range/Units 09:04 09:04 09:04 WBC (4.0-11.0) K/uL RBC (4.30-5.90) M/uL Hgb (12.0-16.0) g/dL Hct (36.0-46.0) % MCV (80.0-98.0) fL MCH (27.0-32.0) pg MCHC (31.0-37.0) g/dL RDW Std Deviation (28.0-62.0) fl RDW Coeff of Sofia (11.0-15.0) % Plt Count (150-400) K/uL MPV (7.40-12.00) fL Add Manual Diff Neutrophils % (Manual) (48.0-80.0) % Band Neutrophils % % Lymphocytes % (Manual) (16.0-40.0) % Monocytes % (Manual) (0.0-15.0) % Nucleated RBC % /100WBC Absolute Seg Neuts (1.4-5.7) Band Neutrophils # Lymphocytes # (Manual) (0.6-2.4) Monocytes # (Manual) (0.0-0.8) Nucleated RBCs # K/uL INR 1.06 D-Dimer, Quantitative (0.0-0.50) mg/L FEU Lactate (0.20-2.00) mmol/L Sodium (136-145) mmol/L Potassium (3.5-5.1) mmol/L Chloride (98-107) mmol/L Carbon Dioxide (21.0-32.0) mmol/L BUN (7.0-18.0) mg/dL Creatinine (0.6-1.0) mg/dL Est Cr Clr Drug Dosing mL/min Estimated GFR (MDRD) ml/min Glucose (74-106) mg/dL Calcium (8.5-10.1) mg/dL Magnesium 2.1 (1.8-2.4) mg/dL Total Bilirubin (0.2-1.0) mg/dL AST (15-37) IU/L ALT (14-63) IU/L Alkaline Phosphatase (46-116) U/L Creatine Kinase (26-308) U/L Troponin I (0.000-0.056) ng/mL Total Protein (6.4-8.2) g/dL Albumin (3.4-5.0) g/dL Globulin (2.6-4.0) g/dL Albumin/Globulin Ratio (0.9-1.6) Free T4 1.25 (0.76-1.46) ng/dL TSH 3rd Generation 1.77 (0.36-3.74) uIU/mL Urine Color Urine Appearance Urine pH (5.0-8.0) Ur Specific [place] (1.001-1.035) Urine Protein (NEGATIVE) mg/dL Urine Glucose (UA) (NEGATIVE) mg/dL Urine Ketones (NEGATIVE) mg/dL Urine Occult Blood (NEGATIVE) Urine Nitrite (NEGATIVE) Urine Bilirubin (NEGATIVE) Urine Urobilinogen (<2.0) EU/dL Ur Leukocyte Esterase (NEGATIVE) Urine RBC (0-2/HPF) Urine WBC (0-5/HPF) Ur Epithelial Cells (NONE-FEW) Urine Bacteria (NEGATIVE) Urine HCG, Qual (NEGATIVE) Urine Opiates Screen (NEGATIVE) Ur Oxycodone Screen (NEGATIVE) Urine Methadone Screen (NEGATIVE) Ur Barbiturates Screen (NEGATIVE) Ur Phencyclidine Scrn (NEGATIVE) Ur Amphetamine Screen (NEGATIVE) U Methamphetamines Scrn (NEGATIVE) U Benzodiazepines Scrn (NEGATIVE) U Cocaine Metab Screen (NEGATIVE) U Marijuana (THC) Screen (NEGATIVE) SARS-CoV-2 RNA (JOSE ANTONIO) (NEGATIVE) 04/09/20 04/09/20 04/09/20 Range/Units 09:47 09:47 09:47 WBC (4.0-11.0) K/uL RBC (4.30-5.90) M/uL Hgb (12.0-16.0) g/dL Hct (36.0-46.0) % MCV (80.0-98.0) fL MCH (27.0-32.0) pg MCHC (31.0-37.0) g/dL RDW Std Deviation (28.0-62.0) fl RDW Coeff of Sofia (11.0-15.0) % Plt Count (150-400) K/uL MPV (7.40-12.00) fL Add Manual Diff Neutrophils % (Manual) (48.0-80.0) % Band Neutrophils % % Lymphocytes % (Manual) (16.0-40.0) % Monocytes % (Manual) (0.0-15.0) % Nucleated RBC % /100WBC Absolute Seg Neuts (1.4-5.7) Band Neutrophils # Lymphocytes # (Manual) (0.6-2.4) Monocytes # (Manual) (0.0-0.8) Nucleated RBCs # K/uL INR D-Dimer, Quantitative (0.0-0.50) mg/L FEU Lactate (0.20-2.00) mmol/L Sodium (136-145) mmol/L Potassium (3.5-5.1) mmol/L Chloride (98-107) mmol/L Carbon Dioxide (21.0-32.0) mmol/L BUN (7.0-18.0) mg/dL Creatinine (0.6-1.0) mg/dL Est Cr Clr Drug Dosing mL/min Estimated GFR (MDRD) ml/min Glucose (74-106) mg/dL Calcium (8.5-10.1) mg/dL Magnesium (1.8-2.4) mg/dL Total Bilirubin (0.2-1.0) mg/dL AST (15-37) IU/L ALT (14-63) IU/L Alkaline Phosphatase (46-116) U/L Creatine Kinase (26-308) U/L Troponin I (0.000-0.056) ng/mL Total Protein (6.4-8.2) g/dL Albumin (3.4-5.0) g/dL Globulin (2.6-4.0) g/dL Albumin/Globulin Ratio (0.9-1.6) Free T4 (0.76-1.46) ng/dL TSH 3rd Generation (0.36-3.74) uIU/mL Urine Color YELLOW Urine Appearance CLEAR Urine pH 6.0 (5.0-8.0) Ur Specific [place] <= 1.005 (1.001-1.035) Urine Protein NEGATIVE (NEGATIVE) mg/dL Urine Glucose (UA) NEGATIVE (NEGATIVE) mg/dL Urine Ketones NEGATIVE (NEGATIVE) mg/dL Urine Occult Blood NEGATIVE (NEGATIVE) Urine Nitrite NEGATIVE (NEGATIVE) Urine Bilirubin NEGATIVE (NEGATIVE) Urine Urobilinogen 0.2 (<2.0) EU/dL Ur Leukocyte Esterase TRACE H (NEGATIVE) Urine RBC NONE SEEN (0-2/HPF) Urine WBC 4-6 (0-5/HPF) Ur Epithelial Cells FEW (NONE-FEW) Urine Bacteria FEW (NEGATIVE) Urine HCG, Qual NEGATIVE (NEGATIVE) Urine Opiates Screen NEGATIVE (NEGATIVE) Ur Oxycodone Screen NEGATIVE (NEGATIVE) Urine Methadone Screen NEGATIVE (NEGATIVE) Ur Barbiturates Screen NEGATIVE (NEGATIVE) Ur Phencyclidine Scrn NEGATIVE (NEGATIVE) Ur Amphetamine Screen NEGATIVE (NEGATIVE) U Methamphetamines Scrn NEGATIVE (NEGATIVE) U Benzodiazepines Scrn NEGATIVE (NEGATIVE) U Cocaine Metab Screen NEGATIVE (NEGATIVE) U Marijuana (THC) Screen NEGATIVE (NEGATIVE) SARS-CoV-2 RNA (JOSE ANTONIO) (NEGATIVE) 04/09/20 Range/Units 11:05 WBC (4.0-11.0) K/uL RBC (4.30-5.90) M/uL Hgb (12.0-16.0) g/dL Hct (36.0-46.0) % MCV (80.0-98.0) fL MCH (27.0-32.0) pg MCHC (31.0-37.0) g/dL RDW Std Deviation (28.0-62.0) fl RDW Coeff of Sofia (11.0-15.0) % Plt Count (150-400) K/uL MPV (7.40-12.00) fL Add Manual Diff Neutrophils % (Manual) (48.0-80.0) % Band Neutrophils % % Lymphocytes % (Manual) (16.0-40.0) % Monocytes % (Manual) (0.0-15.0) % Nucleated RBC % /100WBC Absolute Seg Neuts (1.4-5.7) Band Neutrophils # Lymphocytes # (Manual) (0.6-2.4) Monocytes # (Manual) (0.0-0.8) Nucleated RBCs # K/uL INR D-Dimer, Quantitative (0.0-0.50) mg/L FEU Lactate (0.20-2.00) mmol/L Sodium (136-145) mmol/L Potassium (3.5-5.1) mmol/L Chloride (98-107) mmol/L Carbon Dioxide (21.0-32.0) mmol/L BUN (7.0-18.0) mg/dL Creatinine (0.6-1.0) mg/dL Est Cr Clr Drug Dosing mL/min Estimated GFR (MDRD) ml/min Glucose (74-106) mg/dL Calcium (8.5-10.1) mg/dL Magnesium (1.8-2.4) mg/dL Total Bilirubin (0.2-1.0) mg/dL AST (15-37) IU/L ALT (14-63) IU/L Alkaline Phosphatase (46-116) U/L Creatine Kinase (26-308) U/L Troponin I (0.000-0.056) ng/mL Total Protein (6.4-8.2) g/dL Albumin (3.4-5.0) g/dL Globulin (2.6-4.0) g/dL Albumin/Globulin Ratio (0.9-1.6) Free T4 (0.76-1.46) ng/dL TSH 3rd Generation (0.36-3.74) uIU/mL Urine Color Urine Appearance Urine pH (5.0-8.0) Ur Specific [place] (1.001-1.035) Urine Protein (NEGATIVE) mg/dL Urine Glucose (UA) (NEGATIVE) mg/dL Urine Ketones (NEGATIVE) mg/dL Urine Occult Blood (NEGATIVE) Urine Nitrite (NEGATIVE) Urine Bilirubin (NEGATIVE) Urine Urobilinogen (<2.0) EU/dL Ur Leukocyte Esterase (NEGATIVE) Urine RBC (0-2/HPF) Urine WBC (0-5/HPF) Ur Epithelial Cells (NONE-FEW) Urine Bacteria (NEGATIVE) Urine HCG, Qual (NEGATIVE) Urine Opiates Screen (NEGATIVE) Ur Oxycodone Screen (NEGATIVE) Urine Methadone Screen (NEGATIVE) Ur Barbiturates Screen (NEGATIVE) Ur Phencyclidine Scrn (NEGATIVE) Ur Amphetamine Screen (NEGATIVE) U Methamphetamines Scrn (NEGATIVE) U Benzodiazepines Scrn (NEGATIVE) U Cocaine Metab Screen (NEGATIVE) U Marijuana (THC) Screen (NEGATIVE) SARS-CoV-2 RNA (JOSE ANTONIO) NEGATIVE (NEGATIVE) Meds: Medications Generic Name Dose Route Start Last Admin Trade Name Freq PRN Reason Stop Dose Admin Lactated Ringer's 1,000 mls @ 3,000 mls/hr 04/09/20 09:00 04/09/20 09:05 Ringers, Lactated IV 3,000 mls/hr ASDIRECTED HERMAN Administration Lactated Ringer's 1,000 mls @ 999 mls/hr 04/09/20 12:15 04/09/20 12:04 Ringers, Lactated IV 999 mls/hr .BOLUS HERMAN Administration Sodium Chloride 10 ml 04/09/20 08:52 04/09/20 09:25 Saline Flush FLUSH 10 ml ASDIRECTED PRN Administration Keep Vein Open Sodium Chloride 2.5 ml 04/09/20 08:52 04/09/20 09:26 Saline Flush FLUSH 2.5 ml ASDIRECTED PRN Administration Keep Vein Open Discontinued Medications Generic Name Dose Route Start Last Admin Trade Name Freq PRN Reason Stop Dose Admin Hydrocodone Bitart/Acetaminophen 1 tab 04/09/20 11:40 04/09/20 12:04 [place] 325-5 Mg PO 04/09/20 11:41 1 tab ONETIME ONE Administration Ceftriaxone Sodium 1 gm/ 100 mls @ 200 mls/hr 04/09/20 08:52 04/09/20 09:24 Sodium Chloride IV 04/09/20 09:21 Not Given STAT ONE Ceftriaxone Sodium/Dextrose Confirm 04/09/20 09:19 04/09/20 09:23 Rocephin In Dextrose,Iso-Osm 1 Gm/50 Ml Administered 04/09/20 09:20 Not Given Dose 50 mls @ as directed .ROUTE .STK-MED ONE Ceftriaxone Sodium/Dextrose 1 50 mls @ 100 mls/hr 04/09/20 09:23 04/09/20 09:25 gm/ Premix IV 04/09/20 09:52 100 mls/hr ONETIME ONE Administration Potassium Chloride 40 meq/ 100 mls @ 25 mls/hr 04/09/20 09:56 04/09/20 10:52 Premix IV 04/09/20 13:55 25 mls/hr ONETIME ONE Administration Lactated Ringer's 1,000 mls @ 999 mls/hr 04/09/20 10:16 04/09/20 10:17 Ringers, Lactated IV 04/09/20 11:16 999 mls/hr .BOLUS ONE Administration Iopamidol 100 ml 04/09/20 10:37 04/09/20 10:40 Isovue Multipack-370 (76%) IVPUSH 04/09/20 10:38 100 ml ONETIME ONE Administration Iopamidol 100 ml 04/09/20 13:28 04/09/20 13:30 Isovue Multipack-370 (76%) IVPUSH 04/09/20 13:29 100 ml ONETIME ONE Administration Departure - Departure Time of Disposition: 15:21 Disposition: Admitted As Inpatient 68 Condition: Fair Clinical Impression: Tachycardia, Flank pain - Discharge Information *PRESCRIPTION DRUG MONITORING PROGRAM REVIEWED*: No *COPY OF PRESCRIPTION DRUG MONITORING REPORT IN PATIENT IRENE: No Sepsis Event Note (ED) - Evaluation Sepsis Screening Result: No Definite Risk - Focused Exam Vital Signs: Vital Signs Temp Pulse Resp BP Pulse Ox 04/09/20 13:59 104 H 122/74 94 L 04/09/20 12:10 109 H 129/73 96 04/09/20 11:41 118 H 132/78 98 04/09/20 11:21 118 H 135/77 96 04/09/20 11:01 109 H 128/73 99 04/09/20 10:41 108 H 128/74 99 04/09/20 10:08 118 H 119/77 98 04/09/20 10:01 119/77 04/09/20 09:42 123 H 131/82 96 04/09/20 09:21 115 H 133/80 97 04/09/20 09:01 125 H 130/82 97 04/09/20 08:42 35.6 C L 97 16 139/92 H 97 - My Orders Last 24 Hours: My Active Orders 04/09/20 08:52 Sodium Chloride 0.9% [Saline Flush] 10 ml FLUSH ASDIRECTED PRN Sodium Chloride 0.9% [Saline Flush] 2.5 ml FLUSH ASDIRECTED PRN Blood Culture x2 Reflex Set [OM.PC] Stat Pulse Oximetry Continuous Monitoring [OM.PC] Routine Saline Lock Insert [OM.PC] Stat Severe Sepsis Onset Time [OM.PC] Stat 04/09/20 08:53 Cardiac Monitoring [RC] CONTINUOUS 04/09/20 08:54 Blood Pressure Mgt: Sepsis [RC] Q15MX2 Overnight Pulse Oximetry [RC] Click to Edit 04/09/20 09:00 Lactated Ringers [Ringers, Lactated] 1,000 ml IV ASDIRECTED 04/09/20 09:04 CULTURE BLOOD [BC] Stat 04/09/20 09:20 CULTURE BLOOD [BC] Stat 04/09/20 09:47 CULTURE URINE [RM] Stat 04/09/20 12:15 Lactated Ringers [Ringers, Lactated] 1,000 ml IV .BOLUS 04/09/20 15:12 Cardiac Monitoring [RC] . DIRECTED - Assessment/Plan Last 24 Hours: My Active Orders 04/09/20 08:52 Sodium Chloride 0.9% [Saline Flush] 10 ml FLUSH ASDIRECTED PRN Sodium Chloride 0.9% [Saline Flush] 2.5 ml FLUSH ASDIRECTED PRN Blood Culture x2 Reflex Set [OM.PC] Stat Pulse Oximetry Continuous Monitoring [OM.PC] Routine Saline Lock Insert [OM.PC] Stat Severe Sepsis Onset Time [OM.PC] Stat 04/09/20 08:53 Cardiac Monitoring [RC] CONTINUOUS 04/09/20 08:54 Blood Pressure Mgt: Sepsis [RC] Q15MX2 Overnight Pulse Oximetry [RC] Click to Edit 04/09/20 09:00 Lactated Ringers [Ringers, Lactated] 1,000 ml IV ASDIRECTED 04/09/20 09:04 CULTURE BLOOD [BC] Stat 04/09/20 09:20 CULTURE BLOOD [BC] Stat 04/09/20 09:47 CULTURE URINE [RM] Stat 04/09/20 12:15 Lactated Ringers [Ringers, Lactated] 1,000 ml IV .BOLUS 04/09/20 15:12 Cardiac Monitoring [RC] . DIRECTED
[2020-04-09] MEDS ORDERED: cefTRIAXone 1 GM in Premix Bag 1 BAG IV ONE (09:23)
[2020-04-09 09:36] LABS: BLOOD UREA NITROGEN,BUN 6 mg/dL (7.0-18.0); CARBON DIOXIDE,CO2 24.2 mmol/L (21.0-32.0); CHLORIDE,CL 98 mmol/L (98-107); GLUCOSE RANDOM 122 mg/dL (74-106); POTASSIUM,K 3.1 mmol/L (3.5-5.1); SODIUM,NA 134 mmol/L (136-145)
[2020-04-09] MEDS ORDERED: Potassium Chloride Riders 40 MEQ in Premix Bag 1 BAG IV ONE (09:56)
[2020-04-09] MEDS ORDERED: Lactated Ringers 1,000 ML IV ONE (10:16)
[2020-04-09] MEDS ORDERED: Iopamidol 755 MG/ML 500 ML Multipack Bottle IVPUSH ONE ×2 (10:37→13:28)
--- NOTE | 2020-04-09 11:21 | CT ---
INDICATION: Flank pain. Cholecystectomy. COMPARISON: None. TECHNIQUE: Noncontrast images followed by intravenous administration of 100 mL Isovue-370. FINDINGS: Steatosis of the liver. Cholecystectomy clips. Normal enhancing kidneys without nephrolithiasis or hydronephrosis. Spleen size is mildly enlarged with greatest length of 13.3 cm. Decompressed colon. No inflammation of small bowel. No normal or abnormal appendix identified. No air or fluid in the peritoneum. No bone finding of significance. IMPRESSION: 1. No source for flank pain identified. Normal kidneys. 2. Hepatic steatosis moderately prominent. 3. Mild nonspecific splenomegaly. Please note that all CT scans at this facility use dose modulation, iterative reconstruction, and/or weight-based dosing when appropriate to reduce radiation dose to as low as reasonably achievable. Dictated by Jaime Colorado MD @ Apr 09 2020 11:19AM Signed by Dr. Jaime Colorado @ Apr 09 2020 11:19AM
[2020-04-09] MEDS ORDERED: Acetaminophen/HYDROcodone 325-5 MG Tab PO ONE (11:40)
--- NOTE | 2020-04-09 12:45 | CR ---
INDICATION: Tachycardia with weakness. TECHNIQUE: Chest 1 view. COMPARISON: None FINDINGS: Cardiovascular and mediastinum: Heart size and vasculature are normal in caliber and appearance. Mediastinum is within normal limits. Lungs and pleural space: Lungs are clear. No sign of infiltrate or mass. No sign of pleural effusion. No pneumothorax. Bones and soft tissues: No significant findings. IMPRESSION: Unremarkable chest. Dictated by Jaime Colorado MD @ Apr 09 2020 12:45PM Signed by Dr. Jaime Colorado @ Apr 09 2020 12:45PM
--- NOTE | 2020-04-09 13:52 | CT ---
HISTORY: Tachycardia and elevated D-dimer. COMPARISON: None. TECHNIQUE: Axial images were obtained through the chest following 100 cc of Isovue-370 intravenous contrast. FINDINGS: No evidence for pulmonary embolism. Distal subsegmental branches are not well opacified on the study. Mild dependent ground-glass opacities likely represent atelectasis. The lungs are otherwise clear. No pleural or pericardial effusion. No thoracic lymphadenopathy. The upper abdomen is unremarkable. The bones are within normal. Impression : No evidence for pulmonary embolism. Please note that all CT scans at this facility use dose modulation, iterative reconstruction, and/or weight-based dosing when appropriate to reduce radiation dose to as low as reasonably achievable. Dictated by Bette Newman MD @ Apr 09 2020 1:40PM Signed by Dr. Bette Newman @ Apr 09 2020 1:50PM
--- NOTE | 2020-04-09 22:27 | PCM.HP.2 ---
H&P History of Present Illness - General Date of Service: 04/09/20 Admit Problem/Dx: Admission Diagnosis/Problem Admission Diagnosis/Problem Tachycardia - History of Present Illness Initial Comments - Free Text/Narative: 39 yo female who presents with one day history of bilateral flank pain. Patient also reports dark orange colored urine. PAtient denies any fevers, chills, shortness of breath, dysuria, or pain. PAtient does reports that it feels like her heart is racing from time to time. In the ED she was noted to be in sinus tachycardia with HR in the 110-120s. Patient was given IV fluids that resolved her symptoms but patient remained tachycardic. due to elevated D-dimer patient had CT angio which was negative. general Pain Score (Numeric/FACES): 0 - Related Data Allergies/Adverse Reactions: Allergies Allergy/AdvReac Type Severity Reaction Status Date / Time Sulfa (Sulfonamide Allergy Hives Verified 04/09/20 08:42 Antibiotics) tetanus and diphtheria Allergy Other Verified 04/09/20 08:42 toxoids Home Medications: Home Meds Omeprazole Magnesium [Prilosec] 10 mg PO DAILY 04/09/20 [History] Past Medical History HEENT History: Reports: None Cardiovascular History: Reports: None Respiratory History: Reports: None Gastrointestinal History: Reports: Other (See Below) Other Gastrointestinal History: acid reflux Genitourinary History: Reports: None RN POSTPARTUM History: Reports: None Musculoskeletal History: Reports: None Neurological History: Reports: Headaches, Chronic, Migraines Psychiatric History: Reports: None Endocrine/Metabolic History: Reports: None Hematologic History: Reports: None Immunologic History: Reports: None Oncologic (Cancer) History: Reports: None Dermatologic History: Reports: None - Infectious Disease History Infectious Disease History: Reports: Chicken Pox - Past Surgical History Head Surgeries/Procedures: Reports: None HEENT Surgical History: Reports: None Cardiovascular Surgical History: Reports: None Respiratory Surgical History: Reports: None GI Surgical History: Reports: Cholecystectomy Female Surgical History: Reports: None Endocrine Surgical History: Reports: None Neurological Surgical History: Reports: None Musculoskeletal Surgical History: Reports: None Oncologic Surgical History: Reports: None Dermatological Surgical History: Reports: None Social & Family History - Family History Family Medical History: No Pertinent Family History - Tobacco Use Tobacco Use Status *Q: Never Tobacco User Second Hand Smoke Exposure: No - Caffeine Use Caffeine Use: Reports: Coffee, Tea - Recreational Drug Use Recreational Drug Use: No H&P Review of Systems - Review of Systems: Review Of Systems: Comprehensive ROS is negative, except as noted in HPI. Exam - Vital Signs Vital Signs: Last Vital Signs Temp 37.7 C 04/09/20 20:00 Pulse 99 04/09/20 20:00 Resp 16 04/09/20 20:00 BP 134/70 04/09/20 20:00 Pulse Ox 97 04/09/20 20:00 Weight: 101.293 kg - Exam General: Alert, Oriented HEENT: Mucosa Moist & [place] Lungs: Clear to Auscultation, Normal Respiratory Effort Cardiovascular: Regular Rhythm, Tachycardia GI/Abdominal Exam: Normal Bowel Sounds, Soft, Non-Tender Back Exam: Full Range of Motion. No: CVA Tenderness (L), CVA Tenderness (R) Skin: Warm, Dry, Intact Neurological: Cranial Nerves Intact, Strength Equal Bilateral, Normal Speech - Patient Data Lab Results Last 24 hrs: Laboratory Results - last 24 hr 04/09/20 04/09/20 04/09/20 Range/Units 09:04 09:04 09:04 WBC 12.67 H (4.0-11.0) K/uL RBC 6.26 H (4.30-5.90) M/uL Hgb 16.2 H (12.0-16.0) g/dL Hct 49.1 H (36.0-46.0) % MCV 78.4 L (80.0-98.0) fL MCH 25.9 L (27.0-32.0) pg MCHC 33.0 (31.0-37.0) g/dL RDW Std Deviation 44.2 (28.0-62.0) fl RDW Coeff of Sofia 15 (11.0-15.0) % Plt Count 284 (150-400) K/uL MPV 10.00 (7.40-12.00) fL Add Manual Diff YES Neutrophils % (Manual) 44 L (48.0-80.0) % Band Neutrophils % 4 % Lymphocytes % (Manual) 45 H (16.0-40.0) % Monocytes % (Manual) 7 (0.0-15.0) % Nucleated RBC % 0.0 /100WBC Absolute Seg Neuts 5.6 (1.4-5.7) Band Neutrophils # 0.5 Lymphocytes # (Manual) 5.7 H (0.6-2.4) Monocytes # (Manual) 0.9 H (0.0-0.8) Nucleated RBCs # 0 K/uL INR D-Dimer, Quantitative (0.0-0.50) mg/L FEU Lactate 1.6 (0.20-2.00) mmol/L Sodium 134 L (136-145) mmol/L Potassium 3.1 L (3.5-5.1) mmol/L Chloride 98 (98-107) mmol/L Carbon Dioxide 24.2 (21.0-32.0) mmol/L BUN 6 L (7.0-18.0) mg/dL Creatinine 1.0 (0.6-1.0) mg/dL Est Cr Clr Drug Dosing 60.92 mL/min Estimated GFR (MDRD) > 60.0 ml/min Glucose 122 H (74-106) mg/dL Calcium 8.9 (8.5-10.1) mg/dL Magnesium (1.8-2.4) mg/dL Total Bilirubin 0.6 (0.2-1.0) mg/dL AST 119 H (15-37) IU/L ALT 118 H (14-63) IU/L Alkaline Phosphatase 273 H (46-116) U/L Creatine Kinase (26-308) U/L Troponin I (0.000-0.056) ng/mL Total Protein 8.4 H (6.4-8.2) g/dL Albumin 3.6 (3.4-5.0) g/dL Globulin 4.8 H (2.6-4.0) g/dL Albumin/Globulin Ratio 0.8 L (0.9-1.6) Free T4 (0.76-1.46) ng/dL TSH 3rd Generation (0.36-3.74) uIU/mL Urine Color Urine Appearance Urine pH (5.0-8.0) Ur Specific Fourmile (1.001-1.035) Urine Protein (NEGATIVE) mg/dL Urine Glucose (UA) (NEGATIVE) mg/dL Urine Ketones (NEGATIVE) mg/dL Urine Occult Blood (NEGATIVE) Urine Nitrite (NEGATIVE) Urine Bilirubin (NEGATIVE) Urine Urobilinogen (<2.0) EU/dL Ur Leukocyte Esterase (NEGATIVE) Urine RBC (0-2/HPF) Urine WBC (0-5/HPF) Ur Epithelial Cells (NONE-FEW) Urine Bacteria (NEGATIVE) Urine HCG, Qual (NEGATIVE) Urine Opiates Screen (NEGATIVE) Ur Oxycodone Screen (NEGATIVE) Urine Methadone Screen (NEGATIVE) Ur Barbiturates Screen (NEGATIVE) Ur Phencyclidine Scrn (NEGATIVE) Ur Amphetamine Screen (NEGATIVE) U Methamphetamines Scrn (NEGATIVE) U Benzodiazepines Scrn (NEGATIVE) U Cocaine Metab Screen (NEGATIVE) U Marijuana (THC) Screen (NEGATIVE) SARS-CoV-2 RNA (JOSE ANTONIO) (NEGATIVE) 04/09/20 04/09/20 04/09/20 Range/Units 09:04 09:04 09:04 WBC (4.0-11.0) K/uL RBC (4.30-5.90) M/uL Hgb (12.0-16.0) g/dL Hct (36.0-46.0) % MCV (80.0-98.0) fL MCH (27.0-32.0) pg MCHC (31.0-37.0) g/dL RDW Std Deviation (28.0-62.0) fl RDW Coeff of Sofia (11.0-15.0) % Plt Count (150-400) K/uL MPV (7.40-12.00) fL Add Manual Diff Neutrophils % (Manual) (48.0-80.0) % Band Neutrophils % % Lymphocytes % (Manual) (16.0-40.0) % Monocytes % (Manual) (0.0-15.0) % Nucleated RBC % /100WBC Absolute Seg Neuts (1.4-5.7) Band Neutrophils # Lymphocytes # (Manual) (0.6-2.4) Monocytes # (Manual) (0.0-0.8) Nucleated RBCs # K/uL INR D-Dimer, Quantitative 7.08 H (0.0-0.50) mg/L FEU Lactate (0.20-2.00) mmol/L Sodium (136-145) mmol/L Potassium (3.5-5.1) mmol/L Chloride (98-107) mmol/L Carbon Dioxide (21.0-32.0) mmol/L BUN (7.0-18.0) mg/dL Creatinine (0.6-1.0) mg/dL Est Cr Clr Drug Dosing mL/min Estimated GFR (MDRD) ml/min Glucose (74-106) mg/dL Calcium (8.5-10.1) mg/dL Magnesium (1.8-2.4) mg/dL Total Bilirubin (0.2-1.0) mg/dL AST (15-37) IU/L ALT (14-63) IU/L Alkaline Phosphatase (46-116) U/L Creatine Kinase 65 (26-308) U/L Troponin I < 0.050 (0.000-0.056) ng/mL Total Protein (6.4-8.2) g/dL Albumin (3.4-5.0) g/dL Globulin (2.6-4.0) g/dL Albumin/Globulin Ratio (0.9-1.6) Free T4 (0.76-1.46) ng/dL TSH 3rd Generation (0.36-3.74) uIU/mL Urine Color Urine Appearance Urine pH (5.0-8.0) Ur Specific [place] (1.001-1.035) Urine Protein (NEGATIVE) mg/dL Urine Glucose (UA) (NEGATIVE) mg/dL Urine Ketones (NEGATIVE) mg/dL Urine Occult Blood (NEGATIVE) Urine Nitrite (NEGATIVE) Urine Bilirubin (NEGATIVE) Urine Urobilinogen (<2.0) EU/dL Ur Leukocyte Esterase (NEGATIVE) Urine RBC (0-2/HPF) Urine WBC (0-5/HPF) Ur Epithelial Cells (NONE-FEW) Urine Bacteria (NEGATIVE) Urine HCG, Qual (NEGATIVE) Urine Opiates Screen (NEGATIVE) Ur Oxycodone Screen (NEGATIVE) Urine Methadone Screen (NEGATIVE) Ur Barbiturates Screen (NEGATIVE) Ur Phencyclidine Scrn (NEGATIVE) Ur Amphetamine Screen (NEGATIVE) U Methamphetamines Scrn (NEGATIVE) U Benzodiazepines Scrn (NEGATIVE) U Cocaine Metab Screen (NEGATIVE) U Marijuana (THC) Screen (NEGATIVE) SARS-CoV-2 RNA (JOSE ANTONIO) (NEGATIVE) 04/09/20 04/09/20 04/09/20 Range/Units 09:04 09:04 09:04 WBC (4.0-11.0) K/uL RBC (4.30-5.90) M/uL Hgb (12.0-16.0) g/dL Hct (36.0-46.0) % MCV (80.0-98.0) fL MCH (27.0-32.0) pg MCHC (31.0-37.0) g/dL RDW Std Deviation (28.0-62.0) fl RDW Coeff of Sofia (11.0-15.0) % Plt Count (150-400) K/uL MPV (7.40-12.00) fL Add Manual Diff Neutrophils % (Manual) (48.0-80.0) % Band Neutrophils % % Lymphocytes % (Manual) (16.0-40.0) % Monocytes % (Manual) (0.0-15.0) % Nucleated RBC % /100WBC Absolute Seg Neuts (1.4-5.7) Band Neutrophils # Lymphocytes # (Manual) (0.6-2.4) Monocytes # (Manual) (0.0-0.8) Nucleated RBCs # K/uL INR 1.06 D-Dimer, Quantitative (0.0-0.50) mg/L FEU Lactate (0.20-2.00) mmol/L Sodium (136-145) mmol/L Potassium (3.5-5.1) mmol/L Chloride (98-107) mmol/L Carbon Dioxide (21.0-32.0) mmol/L BUN (7.0-18.0) mg/dL Creatinine (0.6-1.0) mg/dL Est Cr Clr Drug Dosing mL/min Estimated GFR (MDRD) ml/min Glucose (74-106) mg/dL Calcium (8.5-10.1) mg/dL Magnesium 2.1 (1.8-2.4) mg/dL Total Bilirubin (0.2-1.0) mg/dL AST (15-37) IU/L ALT (14-63) IU/L Alkaline Phosphatase (46-116) U/L Creatine Kinase (26-308) U/L Troponin I (0.000-0.056) ng/mL Total Protein (6.4-8.2) g/dL Albumin (3.4-5.0) g/dL Globulin (2.6-4.0) g/dL Albumin/Globulin Ratio (0.9-1.6) Free T4 1.25 (0.76-1.46) ng/dL TSH 3rd Generation 1.77 (0.36-3.74) uIU/mL Urine Color Urine Appearance Urine pH (5.0-8.0) Ur Specific [place] (1.001-1.035) Urine Protein (NEGATIVE) mg/dL Urine Glucose (UA) (NEGATIVE) mg/dL Urine Ketones (NEGATIVE) mg/dL Urine Occult Blood (NEGATIVE) Urine Nitrite (NEGATIVE) Urine Bilirubin (NEGATIVE) Urine Urobilinogen (<2.0) EU/dL Ur Leukocyte Esterase (NEGATIVE) Urine RBC (0-2/HPF) Urine WBC (0-5/HPF) Ur Epithelial Cells (NONE-FEW) Urine Bacteria (NEGATIVE) Urine HCG, Qual (NEGATIVE) Urine Opiates Screen (NEGATIVE) Ur Oxycodone Screen (NEGATIVE) Urine Methadone Screen (NEGATIVE) Ur Barbiturates Screen (NEGATIVE) Ur Phencyclidine Scrn (NEGATIVE) Ur Amphetamine Screen (NEGATIVE) U Methamphetamines Scrn (NEGATIVE) U Benzodiazepines Scrn (NEGATIVE) U Cocaine Metab Screen (NEGATIVE) U Marijuana (THC) Screen (NEGATIVE) SARS-CoV-2 RNA (JOSE ANTONIO) (NEGATIVE) 04/09/20 04/09/20 04/09/20 Range/Units 09:47 09:47 09:47 WBC (4.0-11.0) K/uL RBC (4.30-5.90) M/uL Hgb (12.0-16.0) g/dL Hct (36.0-46.0) % MCV (80.0-98.0) fL MCH (27.0-32.0) pg MCHC (31.0-37.0) g/dL RDW Std Deviation (28.0-62.0) fl RDW Coeff of Sofia (11.0-15.0) % Plt Count (150-400) K/uL MPV (7.40-12.00) fL Add Manual Diff Neutrophils % (Manual) (48.0-80.0) % Band Neutrophils % % Lymphocytes % (Manual) (16.0-40.0) % Monocytes % (Manual) (0.0-15.0) % Nucleated RBC % /100WBC Absolute Seg Neuts (1.4-5.7) Band Neutrophils # Lymphocytes # (Manual) (0.6-2.4) Monocytes # (Manual) (0.0-0.8) Nucleated RBCs # K/uL INR D-Dimer, Quantitative (0.0-0.50) mg/L FEU Lactate (0.20-2.00) mmol/L Sodium (136-145) mmol/L Potassium (3.5-5.1) mmol/L Chloride (98-107) mmol/L Carbon Dioxide (21.0-32.0) mmol/L BUN (7.0-18.0) mg/dL Creatinine (0.6-1.0) mg/dL Est Cr Clr Drug Dosing mL/min Estimated GFR (MDRD) ml/min Glucose (74-106) mg/dL Calcium (8.5-10.1) mg/dL Magnesium (1.8-2.4) mg/dL Total Bilirubin (0.2-1.0) mg/dL AST (15-37) IU/L ALT (14-63) IU/L Alkaline Phosphatase (46-116) U/L Creatine Kinase (26-308) U/L Troponin I (0.000-0.056) ng/mL Total Protein (6.4-8.2) g/dL Albumin (3.4-5.0) g/dL Globulin (2.6-4.0) g/dL Albumin/Globulin Ratio (0.9-1.6) Free T4 (0.76-1.46) ng/dL TSH 3rd Generation (0.36-3.74) uIU/mL Urine Color YELLOW Urine Appearance CLEAR Urine pH 6.0 (5.0-8.0) Ur Specific [place] <= 1.005 (1.001-1.035) Urine Protein NEGATIVE (NEGATIVE) mg/dL Urine Glucose (UA) NEGATIVE (NEGATIVE) mg/dL Urine Ketones NEGATIVE (NEGATIVE) mg/dL Urine Occult Blood NEGATIVE (NEGATIVE) Urine Nitrite NEGATIVE (NEGATIVE) Urine Bilirubin NEGATIVE (NEGATIVE) Urine Urobilinogen 0.2 (<2.0) EU/dL Ur Leukocyte Esterase TRACE H (NEGATIVE) Urine RBC NONE SEEN (0-2/HPF) Urine WBC 4-6 (0-5/HPF) Ur Epithelial Cells FEW (NONE-FEW) Urine Bacteria FEW (NEGATIVE) Urine HCG, Qual NEGATIVE (NEGATIVE) Urine Opiates Screen NEGATIVE (NEGATIVE) Ur Oxycodone Screen NEGATIVE (NEGATIVE) Urine Methadone Screen NEGATIVE (NEGATIVE) Ur Barbiturates Screen NEGATIVE (NEGATIVE) Ur Phencyclidine Scrn NEGATIVE (NEGATIVE) Ur Amphetamine Screen NEGATIVE (NEGATIVE) U Methamphetamines Scrn NEGATIVE (NEGATIVE) U Benzodiazepines Scrn NEGATIVE (NEGATIVE) U Cocaine Metab Screen NEGATIVE (NEGATIVE) U Marijuana (THC) Screen NEGATIVE (NEGATIVE) SARS-CoV-2 RNA (JOSE ANTONIO) (NEGATIVE) 04/09/20 Range/Units 11:05 WBC (4.0-11.0) K/uL RBC (4.30-5.90) M/uL Hgb (12.0-16.0) g/dL Hct (36.0-46.0) % MCV (80.0-98.0) fL MCH (27.0-32.0) pg MCHC (31.0-37.0) g/dL RDW Std Deviation (28.0-62.0) fl RDW Coeff of Sofia (11.0-15.0) % Plt Count (150-400) K/uL MPV (7.40-12.00) fL Add Manual Diff Neutrophils % (Manual) (48.0-80.0) % Band Neutrophils % % Lymphocytes % (Manual) (16.0-40.0) % Monocytes % (Manual) (0.0-15.0) % Nucleated RBC % /100WBC Absolute Seg Neuts (1.4-5.7) Band Neutrophils # Lymphocytes # (Manual) (0.6-2.4) Monocytes # (Manual) (0.0-0.8) Nucleated RBCs # K/uL INR D-Dimer, Quantitative (0.0-0.50) mg/L FEU Lactate (0.20-2.00) mmol/L Sodium (136-145) mmol/L Potassium (3.5-5.1) mmol/L Chloride (98-107) mmol/L Carbon Dioxide (21.0-32.0) mmol/L BUN (7.0-18.0) mg/dL Creatinine (0.6-1.0) mg/dL Est Cr Clr Drug Dosing mL/min Estimated GFR (MDRD) ml/min Glucose (74-106) mg/dL Calcium (8.5-10.1) mg/dL Magnesium (1.8-2.4) mg/dL Total Bilirubin (0.2-1.0) mg/dL AST (15-37) IU/L ALT (14-63) IU/L Alkaline Phosphatase (46-116) U/L Creatine Kinase (26-308) U/L Troponin I (0.000-0.056) ng/mL Total Protein (6.4-8.2) g/dL Albumin (3.4-5.0) g/dL Globulin (2.6-4.0) g/dL Albumin/Globulin Ratio (0.9-1.6) Free T4 (0.76-1.46) ng/dL TSH 3rd Generation (0.36-3.74) uIU/mL Urine Color Urine Appearance Urine pH (5.0-8.0) Ur Specific [place] (1.001-1.035) Urine Protein (NEGATIVE) mg/dL Urine Glucose (UA) (NEGATIVE) mg/dL Urine Ketones (NEGATIVE) mg/dL Urine Occult Blood (NEGATIVE) Urine Nitrite (NEGATIVE) Urine Bilirubin (NEGATIVE) Urine Urobilinogen (<2.0) EU/dL Ur Leukocyte Esterase (NEGATIVE) Urine RBC (0-2/HPF) Urine WBC (0-5/HPF) Ur Epithelial Cells (NONE-FEW) Urine Bacteria (NEGATIVE) Urine HCG, Qual (NEGATIVE) Urine Opiates Screen (NEGATIVE) Ur Oxycodone Screen (NEGATIVE) Urine Methadone Screen (NEGATIVE) Ur Barbiturates Screen (NEGATIVE) Ur Phencyclidine Scrn (NEGATIVE) Ur Amphetamine Screen (NEGATIVE) U Methamphetamines Scrn (NEGATIVE) U Benzodiazepines Scrn (NEGATIVE) U Cocaine Metab Screen (NEGATIVE) U Marijuana (THC) Screen (NEGATIVE) SARS-CoV-2 RNA (JOSE ANTONIO) NEGATIVE (NEGATIVE) Result Diagrams: 04/09/20 09:04 04/09/20 09:04 Sepsis Event Note - Evaluation Sepsis Screening Result: No Definite Risk - Focused Exam Vital Signs: Vital Signs Temp Pulse Resp BP Pulse Ox 04/09/20 20:00 37.7 C 99 16 134/70 97 04/09/20 18:30 102 H 04/09/20 15:54 36.3 C 110 H 16 127/74 99 04/09/20 13:59 104 H 122/74 94 L 04/09/20 12:10 109 H 129/73 96 04/09/20 11:41 118 H 132/78 98 04/09/20 11:21 118 H 135/77 96 04/09/20 11:01 109 H 128/73 99 04/09/20 10:41 108 H 128/74 99 Problem List Initiated/Reviewed/Updated: Yes Orders Last 24hrs: Active Orders 24 hr Category Date Time Status Admission Status [Patient Status] [ADT] Stat ADT 04/09/20 15:21 Active Blood Pressure Mgt: Sepsis [RC] Q15MX2 Care 04/09/20 08:54 Active Cardiac Monitoring [RC] . DIRECTED Care 04/09/20 15:12 Active Cardiac Monitoring [RC] CONTINUOUS Care 04/09/20 08:53 Active Telemetry Monitoring [Cardiac Monitoring] [RC] Q8H Care 04/09/20 15:23 Active Regular Diet [DIET] Diet 04/09/20 Dinner Active CULTURE BLOOD [BC] Stat Lab 04/09/20 09:04 Received CULTURE BLOOD [BC] Stat Lab 04/09/20 09:20 Received CULTURE URINE [RM] Stat Lab 04/09/20 09:47 Received Lactated Ringers [Ringers, Lactated] 1,000 ml Med 04/09/20 12:15 Active IV .BOLUS Lactated Ringers [Ringers, Lactated] 1,000 ml Med 04/09/20 09:00 Active IV ASDIRECTED Sodium Chloride 0.9% [Saline Flush] Med 04/09/20 08:52 Active 10 ml FLUSH ASDIRECTED PRN Sodium Chloride 0.9% [Saline Flush] Med 04/09/20 08:52 Active 2.5 ml FLUSH ASDIRECTED PRN Blood Culture x2 Reflex Set [OM.PC] Stat Oth 04/09/20 08:52 Ordered Pulse Oximetry Continuous Monitoring [OM.PC] Routine Oth 04/09/20 08:52 Ordered Saline Lock Insert [OM.PC] Stat Oth 04/09/20 08:52 Ordered Severe Sepsis Onset Time [OM.PC] Stat Oth 04/09/20 08:52 Ordered Medication Orders Lactated Ringer's (Ringers, Lactated) 1,000 mls @ 3,000 mls/hr IV ASDIRECTED HERMAN Last Admin: 04/09/20 09:05 Dose: 3,000 mls/hr Documented by: UYEN Lactated Ringer's (Ringers, Lactated) 1,000 mls @ 999 mls/hr IV .BOLUS HERMAN Last Admin: 04/09/20 12:04 Dose: 999 mls/hr Documented by: DANAY Sodium Chloride (Saline Flush) 10 ml FLUSH ASDIRECTED PRN PRN Reason: Keep Vein Open Last Admin: 04/09/20 09:25 Dose: 10 ml Documented by: UYEN Sodium Chloride (Saline Flush) 2.5 ml FLUSH ASDIRECTED PRN PRN Reason: Keep Vein Open Last Admin: 04/09/20 09:26 Dose: 2.5 ml Documented by: UYEN Assessment/Plan Comment:: 39 yo female admitted for tachycardia. I suspect dehydration. We will continue IV fluids and monitor on telemetry. Infection is less likely but patient did receive 1 g of Rocephin in ED.
[2020-04-09] MEDS: Sodium Chloride 0.9% 1,000 ML IV SCH (23:06)
[2020-04-10] MEDS: Acetaminophen 325 MG Tab PO PRN ×2 (01:51→08:49)
[2020-04-10] MEDS: Sodium Chloride 0.9% 1,000 ML IV SCH (06:20)
[2020-04-10 06:34] LABS: BLOOD UREA NITROGEN,BUN 6 mg/dL (7.0-18.0); CARBON DIOXIDE,CO2 25.8 mmol/L (21.0-32.0); CHLORIDE,CL 104 mmol/L (98-107); GLUCOSE RANDOM 94 mg/dL (74-106); POTASSIUM,K 3.8 mmol/L (3.5-5.1); SODIUM,NA 142 mmol/L (136-145)
[2020-04-10 12:08] LABS: CORONAVIRUS COVID-19 NAA NEGATIVE (NEGATIVE); INFLUENZA A NAA NEGATIVE (NEGATIVE); INFLUENZA B NAA NEGATIVE (NEGATIVE)
[2020-04-10 13:07] VITALS: BP 128/64; PULSE 93
--- NOTE | 2020-04-10 15:19 | PCM.DCSUM1 ---
Discharge Summary - Hospital Course Free Text/Narrative:: Patient is a 39-year-old female with a significant past medical history of GERD presenting to the ED on 04/09/2020 with chief complaint of dark urine, 8 days of increasing thirst with intermittent nausea without vomiting. Patient also had some shooting discomfort in her right flank anteriorly radiating to the right lower quadrant. Patient attempted Excedrin at home with minimal relief. ED course: Febrile w. TMAX of 101.4; Patient was also found to be tachycardic and required sepsis work-up. CBC did suggest a mild elevation of WBC at 12.6 and a lactic acid 1.6. Mild hyponatremia and mild hypokalemia 3.1 ; mild transa minitis,. Covid negative. UA positive for trace leukocytes but negative for nitrites and for blood. CT abdomen pelvis with and without contrast did not suggest any evidence of nephrolithiasis. Hepatic steatosis was noted. Mild splenomegaly. Patient received fluids however heart rate was still mildly tachycardic; EKG : sinus rhythm with tachycardia Troponin negative. D-dimer mildly elevated at 7.08. TSH and T4 normal. Due to elevated D-dimer; CT angio ordered. No acute PE was noted. Patient was given 1 L LR +1 g of ceftriaxone for possible UTI. Patient admitted to the [facility] floor for observation. Hospital course: Repeat Covid swabs and influenza swab ordered secondary to concerns about false negatives. This was however negative along with a mono screen negative secondary to mild splenomegaly. Heart rate continue to improve and tachycardia had resolved with the final pulse rate of 93. Repeat CBC showed no leukocytosis however did appreciate mild microcytic anemia. CMP: Mild transaminitis and marginally lower iron and percent saturation. Patient on day of discharge requested discharge secondary to feeling better and was afebrile. Discussed with patient possible etiologies for fevers and elevated white count including viral and otherwise. Blood cultures and urine cultures are still pending. Patient is afebrile and requesting discharge. Patient discharged with ciprofloxacin (allergic to Bactrim and initial concerns was for pyelonephritis); advised to continue using Tylenol. Advised to follow u[ primary care and of course to return or notify provider if any fevers, chills, body aches, flank pain, dysuria develop. Follow up with blood and urine cultures Discussed with patient if blood culture and urine cultures are positive or require intervention will notify patient directly. Patient understood. Patient discharged in stable condition. Disposition Home Follow-up: PCP - Discharge Data Discharge Date: 04/10/20 Discharge Disposition: Home, Self-Care 01 Condition: Good - Referral to Home Health Primary Care Physician: PCP None - Patient Instructions Diet: Drink 8-10+ Glasses/Day Notify Provider of: Fever, Increased Pain, Nausea and/or Vomiting - Discharge Plan *PRESCRIPTION DRUG MONITORING PROGRAM REVIEWED*: No *COPY OF PRESCRIPTION DRUG MONITORING REPORT IN PATIENT IRENE: No Prescriptions/Med Rec: Ciprofloxacin HCl [Cipro] 500 mg PO BID 7 Days #14 tablet Home Medications: Home Meds Omeprazole Magnesium [Prilosec] 10 mg PO DAILY 04/09/20 [History] Acetaminophen [Tylenol] 650 mg PO Q6H PRN tablet 04/10/20 [Rx] Ciprofloxacin HCl [Cipro] 500 mg PO BID 7 Days #14 tablet 04/10/20 [Rx] Forms: ED Department Discharge Referrals: Jenniffer Lamas NP [Nurse Practitioner] - 04/25/20 10:30 am - Discharge Summary/Plan Comment DC Time >30 min.: No - Patient Data Vitals - Most Recent: Last Vital Signs Temp 98.4 F 04/10/20 13:06 Pulse 93 04/10/20 13:06 Resp 16 04/10/20 13:06 BP 128/64 04/10/20 13:06 Pulse Ox 97 04/10/20 13:06 Weight - Most Recent: 101.293 kg I&O - Last 24 hours: Intake & Output 04/10/20 04/10/20 04/10/20 06:59 14:59 22:59 Intake Total 1586 Output Total 1999 Balance -414 Lab Results - Last 24 hrs: Laboratory Results - last 24 hr 04/09/20 04/10/20 04/10/20 Range/Units 09:04 00:14 00:14 WBC 10.67 (4.0-11.0) K/uL RBC 5.25 (4.30-5.90) M/uL Hgb 13.3 (12.0-16.0) g/dL Hct 39.8 (36.0-46.0) % MCV 75.8 L (80.0-98.0) fL MCH 25.3 L (27.0-32.0) pg MCHC 33.4 (31.0-37.0) g/dL RDW Std Deviation 42.8 (28.0-62.0) fl RDW Coeff of Sofia 16 H (11.0-15.0) % Plt Count 275 (150-400) K/uL MPV 9.50 (7.40-12.00) fL Add Manual Diff YES Neutrophils % (Manual) 42 L (48.0-80.0) % Lymphocytes % (Manual) 48 H (16.0-40.0) % Monocytes % (Manual) 10 (0.0-15.0) % Nucleated RBC % /100WBC Absolute Seg Neuts 4.5 (1.4-5.7) Lymphocytes # (Manual) 5.1 H (0.6-2.4) Monocytes # (Manual) 1.1 H (0.0-0.8) Nucleated RBCs # K/uL Reactive Lymphocytes Lactate 1.1 (0.20-2.00) mmol/L Sodium (136-145) mmol/L Potassium (3.5-5.1) mmol/L Chloride (98-107) mmol/L Carbon Dioxide (21.0-32.0) mmol/L BUN (7.0-18.0) mg/dL Creatinine (0.6-1.0) mg/dL Est Cr Clr Drug Dosing mL/min Estimated GFR (MDRD) ml/min Glucose (74-106) mg/dL Calcium (8.5-10.1) mg/dL Magnesium 2.1 (1.8-2.4) mg/dL Iron (50-175) ug/dL TIBC (250-450) ug/dL % Saturation (20-55) % Ferritin (8-252) ng/mL Total Bilirubin (0.2-1.0) mg/dL AST (15-37) IU/L ALT (14-63) IU/L Alkaline Phosphatase (46-116) U/L Total Protein (6.4-8.2) g/dL Albumin (3.4-5.0) g/dL Globulin (2.6-4.0) g/dL Albumin/Globulin Ratio (0.9-1.6) Monoscreen (NEG) Influenza Type A RNA (NEGATIVE) Influenza Type B RNA (NEGATIVE) SARS-CoV-2 RNA (JOSE ANTONIO) (NEGATIVE) 01/25/21 01/25/21 01/25/21 Range/Units 05:40 05:40 05:40 WBC 10.67 (4.0-11.0) K/uL RBC 5.31 (4.30-5.90) M/uL Hgb 13.4 (12.0-16.0) g/dL Hct 41.7 (36.0-46.0) % MCV 78.5 L (80.0-98.0) fL MCH 25.2 L (27.0-32.0) pg MCHC 32.1 (31.0-37.0) g/dL RDW Std Deviation 45.0 (28.0-62.0) fl RDW Coeff of Sofia 16 H (11.0-15.0) % Plt Count 296 (150-400) K/uL MPV 10.40 (7.40-12.00) fL Add Manual Diff YES Neutrophils % (Manual) 36 L (48.0-80.0) % Lymphocytes % (Manual) 50 H (16.0-40.0) % Monocytes % (Manual) 14 (0.0-15.0) % Nucleated RBC % 0.0 /100WBC Absolute Seg Neuts 3.8 (1.4-5.7) Lymphocytes # (Manual) 5.3 H (0.6-2.4) Monocytes # (Manual) 1.5 H (0.0-0.8) Nucleated RBCs # 0 K/uL Reactive Lymphocytes FEW Lactate (0.20-2.00) mmol/L Sodium 142 (136-145) mmol/L Potassium 3.8 (3.5-5.1) mmol/L Chloride 104 (98-107) mmol/L Carbon Dioxide 25.8 (21.0-32.0) mmol/L BUN 6 L (7.0-18.0) mg/dL Creatinine 0.9 (0.6-1.0) mg/dL Est Cr Clr Drug Dosing 67.69 mL/min Estimated GFR (MDRD) > 60.0 ml/min Glucose 94 (74-106) mg/dL Calcium 8.0 L (8.5-10.1) mg/dL Magnesium (1.8-2.4) mg/dL Iron (50-175) ug/dL TIBC (250-450) ug/dL % Saturation (20-55) % Ferritin (8-252) ng/mL Total Bilirubin 0.5 (0.2-1.0) mg/dL AST 89 H (15-37) IU/L ALT 93 H (14-63) IU/L Alkaline Phosphatase 209 H (46-116) U/L Total Protein 6.8 (6.4-8.2) g/dL Albumin 2.9 L (3.4-5.0) g/dL Globulin 3.9 (2.6-4.0) g/dL Albumin/Globulin Ratio 0.7 L (0.9-1.6) Monoscreen NEGATIVE (NEG) Influenza Type A RNA (NEGATIVE) Influenza Type B RNA (NEGATIVE) SARS-CoV-2 RNA (JOSE ANTONIO) (NEGATIVE) 04/10/20 04/10/20 Range/Units 08:35 11:18 WBC (4.0-11.0) K/uL RBC (4.30-5.90) M/uL Hgb (12.0-16.0) g/dL Hct (36.0-46.0) % MCV (80.0-98.0) fL MCH (27.0-32.0) pg MCHC (31.0-37.0) g/dL RDW Std Deviation (28.0-62.0) fl RDW Coeff of Sofia (11.0-15.0) % Plt Count (150-400) K/uL MPV (7.40-12.00) fL Add Manual Diff Neutrophils % (Manual) (48.0-80.0) % Lymphocytes % (Manual) (16.0-40.0) % Monocytes % (Manual) (0.0-15.0) % Nucleated RBC % /100WBC Absolute Seg Neuts (1.4-5.7) Lymphocytes # (Manual) (0.6-2.4) Monocytes # (Manual) (0.0-0.8) Nucleated RBCs # K/uL Reactive Lymphocytes Lactate (0.20-2.00) mmol/L Sodium (136-145) mmol/L Potassium (3.5-5.1) mmol/L Chloride (98-107) mmol/L Carbon Dioxide (21.0-32.0) mmol/L BUN (7.0-18.0) mg/dL Creatinine (0.6-1.0) mg/dL Est Cr Clr Drug Dosing mL/min Estimated GFR (MDRD) ml/min Glucose (74-106) mg/dL Calcium (8.5-10.1) mg/dL Magnesium (1.8-2.4) mg/dL Iron 23 L (50-175) ug/dL TIBC 281 (250-450) ug/dL % Saturation 8.19 L (20-55) % Ferritin 94 (8-252) ng/mL Total Bilirubin (0.2-1.0) mg/dL AST (15-37) IU/L ALT (14-63) IU/L Alkaline Phosphatase (46-116) U/L Total Protein (6.4-8.2) g/dL Albumin (3.4-5.0) g/dL Globulin (2.6-4.0) g/dL Albumin/Globulin Ratio (0.9-1.6) Monoscreen (NEG) Influenza Type A RNA NEGATIVE (NEGATIVE) Influenza Type B RNA NEGATIVE (NEGATIVE) SARS-CoV-2 RNA (JOSE ANTONIO) NEGATIVE (NEGATIVE) JABIER Results - Last 24 hrs: Microbiology 04/09/20 09:20 Aerobic Blood Culture - Preliminary Blood - Venous - Lab Draw NO GROWTH AFTER 1 DAY Anaerobic Blood Culture - Preliminary NO GROWTH AFTER 1 DAY 04/09/20 09:04 Aerobic Blood Culture - Preliminary Blood - Venous NO GROWTH AFTER 1 DAY Anaerobic Blood Culture - Preliminary NO GROWTH AFTER 1 DAY Med Orders - Current: Current Medications Acetaminophen (Tylenol) 650 mg PO Q6H PRN PRN Reason: Pain Last Admin: 04/10/20 08:49 Dose: 650 mg Documented by: Lactated Ringer's (Ringers, Lactated) 1,000 mls @ 3,000 mls/hr IV ASDIRECTED HERMAN Last Admin: 04/09/20 09:05 Dose: 3,000 mls/hr Documented by: Lactated Ringer's (Ringers, Lactated) 1,000 mls @ 999 mls/hr IV .BOLUS HERMAN Last Admin: 04/09/20 12:04 Dose: 999 mls/hr Documented by: Sodium Chloride (Normal Saline) 1,000 mls @ 125 mls/hr IV ASDIRECTED HERMAN Last Admin: 04/10/20 06:20 Dose: 125 mls/hr Documented by: Sodium Chloride (Saline Flush) 10 ml FLUSH ASDIRECTED PRN PRN Reason: Keep Vein Open Last Admin: 04/09/20 09:25 Dose: 10 ml Documented by: Sodium Chloride (Saline Flush) 2.5 ml FLUSH ASDIRECTED PRN PRN Reason: Keep Vein Open Last Admin: 04/09/20 09:26 Dose: 2.5 ml Documented by: Discontinued Medications Hydrocodone Bitart/Acetaminophen ([place] 325-5 Mg) 1 tab PO ONETIME ONE Stop: 04/09/20 11:41 Last Admin: 04/09/20 12:04 Dose: 1 tab Documented by: Ceftriaxone Sodium 1 gm/ (Sodium Chloride) 100 mls @ 200 mls/hr IV STAT ONE Stop: 04/09/20 09:21 Last Admin: 04/09/20 09:24 Dose: Not Given Documented by: Ceftriaxone Sodium/Dextrose (Rocephin In Dextrose,Iso-Osm 1 Gm/50 Ml) Confirm Administered Dose 50 mls @ as directed .ROUTE .STK-MED ONE Stop: 04/09/20 09:20 Last Admin: 04/09/20 09:23 Dose: Not Given Documented by: Ceftriaxone Sodium/Dextrose 1 (gm/ Premix) 50 mls @ 100 mls/hr IV ONETIME ONE Stop: 04/09/20 09:52 Last Admin: 04/09/20 09:25 Dose: 100 mls/hr Documented by: Potassium Chloride 40 meq/ (Premix) 100 mls @ 25 mls/hr IV ONETIME ONE Stop: 04/09/20 13:55 Last Admin: 04/09/20 10:52 Dose: 25 mls/hr Documented by: Lactated Ringer's (Ringers, Lactated) 1,000 mls @ 999 mls/hr IV .BOLUS ONE Stop: 04/09/20 11:16 Last Admin: 04/09/20 10:17 Dose: 999 mls/hr Documented by: Iopamidol (Isovue Multipack-370 (76%)) 100 ml IVPUSH ONETIME ONE Stop: 04/09/20 10:38 Last Admin: 04/09/20 10:40 Dose: 100 ml Documented by: Iopamidol (Isovue Multipack-370 (76%)) 100 ml IVPUSH ONETIME ONE Stop: 04/09/20 13:29 Last Admin: 04/09/20 13:30 Dose: 100 ml Documented by:
== END 2020-04-10 16:28 | disposition home or self-care (01) ==
LOC: MW.ED 08:21 → MW.MS 15:21
PROVIDERS: ADMIT Internal Medicine; ATTEND Internal Medicine
DX: R00.0 Tachycardia, unspecified (principal); R10.9 Unspecified abdominal pain; K21.9 Gastro-esophageal reflux disease without esophagitis; E87.1 Hypo-osmolality and hyponatremia; E87.6 Hypokalemia; K76.0 Fatty (change of) liver, not elsewhere classified; R16.1 Splenomegaly, not elsewhere classified; Z20.822 Contact with and (suspected) exposure to COVID-19; Z88.2 Allergy status to sulfonamides; Z88.7 Allergy status to serum and vaccine; Z90.49 Acquired absence of other specified parts of digestive tract; Z79.899 Other long term (current) drug therapy
CPT/HCPCS: 0240U; 36415; 71045; 71275; 74178; 80053; 80305; 81001; 81025; 82550; 82728; 83550; 83605; 83735; 84439; 84443; 84484; 85025; 85379; 85610; 86308; 87040; 87086; 87635; 93005; 96361; 96365; 96366; 96367; 99285; A9270; G0378; J0696; J3480; J7030; J7120; Q9967; 93010; U0002

== ENCOUNTER 2021-03-15 17:16 | Emergency (ER) | payer BC ==
[2021-03-15] MEDS ORDERED: Sodium Chloride 0.9% 10 ML Syringe FLUSH PRN (18:02)
[2021-03-15] MEDS ORDERED: diphenhydrAMINE 50 MG/ML SDV IVPUSH ONE (18:02)
[2021-03-15] MEDS ORDERED: Ketorolac 15 MG/ML SDV IVPUSH ONE (18:02)
[2021-03-15] MEDS ORDERED: Ondansetron 4 MG/2 ML SDV IVPUSH ONE (18:02)
[2021-03-15] MEDS ORDERED: Sodium Chloride 0.9% 2.5 ML Syringe FLUSH PRN (18:02)
--- NOTE | 2021-03-15 18:07 | EDM.PDOC ---
<Sravan Shipmanamanjeana - Last Filed: 03/15/21 18:02> ED HPI GENERAL MEDICAL PROBLEM - General Chief Complaint: Headache Stated Complaint: MIGRAINE,NUMB HANDS,NAUSEA Time Seen by Provider: 03/15/21 17:57 - History of Present Illness INITIAL COMMENTS - FREE TEXT/NARRATIVE: 40-year-old female with history of migraines presents with 1 day of severe headache, photophobia, phonophobia without aura. Patient states she gets headaches occasionally but usually not this bad. She has been to the ER in the past for a migraine cocktail. She denies falls, hitting her head, loss of consciousness, numbness, tingling, difficulty ambulating, chest pain, palpitations, cough, or shortness of breath. Headache Pain Score (Numeric/FACES): 10 - Related Data Allergies Allergy/AdvReac Type Severity Reaction Status Date / Time Sulfa (Sulfonamide Allergy Hives Verified 03/15/21 17:53 Antibiotics) tetanus and diphtheria Allergy Other Verified 03/15/21 17:53 toxoids Home Meds: Home Meds Omeprazole Magnesium [Prilosec] 10 mg PO DAILY 04/09/20 [History] Esomeprazole Magnesium [Nexium] 1 dose PO DAILY 03/15/21 [History] Past Medical History HEENT History: Reports: None Cardiovascular History: Reports: None Respiratory History: Reports: None Gastrointestinal History: Reports: Other (See Below) Other Gastrointestinal History: acid reflux Genitourinary History: Reports: None [employer] History: Reports: None Musculoskeletal History: Reports: None Neurological History: Reports: Headaches, Chronic, Migraines Psychiatric History: Reports: None Endocrine/Metabolic History: Reports: None Hematologic History: Reports: None Immunologic History: Reports: None Oncologic (Cancer) History: Reports: None Dermatologic History: Reports: None - Infectious Disease History Infectious Disease History: Reports: Chicken Pox - Past Surgical History Head Surgeries/Procedures: Reports: None HEENT Surgical History: Reports: None Cardiovascular Surgical History: Reports: None Respiratory Surgical History: Reports: None GI Surgical History: Reports: Cholecystectomy Female Surgical History: Reports: None Endocrine Surgical History: Reports: None Neurological Surgical History: Reports: None Musculoskeletal Surgical History: Reports: None Oncologic Surgical History: Reports: None Dermatological Surgical History: Reports: None Social & Family History - Family History Family Medical History: No Pertinent Family History - Tobacco Use Tobacco Use Status *Q: Never Tobacco User - Caffeine Use Caffeine Use: Reports: Coffee, Tea - Recreational Drug Use Recreational Drug Use: No Drug Use in Last 12 Months: No ED ROS GENERAL - Review of Systems Review Of Systems: Comprehensive ROS is negative, except as noted in HPI. ED EXAM, GENERAL - Physical Exam Exam: See Below General Appearance: Alert, Mild Distress Eye Exam: Bilateral Eye: Normal Inspection Ears: Normal External Exam Nose: Normal Inspection, Normal Mucosa, No Blood Throat/Mouth: Normal Inspection, Normal Lips Head: Atraumatic, Normocephalic Neck: Normal Inspection, Supple, Non-Tender Respiratory/Chest: No Respiratory Distress, Lungs Clear Cardiovascular: Normal Peripheral Pulses, Regular Rate, Rhythm GI/Abdominal: Normal Bowel Sounds, Soft, Non-Tender Back Exam: Normal Inspection Extremities: Normal Inspection, Normal Range of Motion Neurological: Alert, Oriented, CN II-XII Intact, Normal Cognition, No Motor/Sensory Deficits Departure - Departure Disposition: Home, Self-Care 01 Clinical Impression: Migraine headache Qualifiers: Migraine type: unspecified Status migrainosus presence: without status migrainosus Intractability: not intractable Qualified Code(s): G43.909 - Migraine, unspecified, not intractable, without status migrainosus - Discharge Information Instructions: Migraine Headache, [id number] Forms: ED Department Discharge Additional Instructions: Your seen and evaluated in the ER today secondary to a migraine headache. You have received Toradol, Zofran, Reglan, Benadryl, Decadron, and NSS here in the ED today. Please go home and get plenty of sleep tonight. Please make an appointment to follow-up with your doctor in 1 week. Please return the ER if you develop any new or concerning symptoms. The following information is given to patients seen in the emergency department who are being discharged to home. This information is to outline your options for follow-up care. We provide all patients seen in our emergency department with a follow-up referral. The need for follow-up, as well as the timing and circumstances, are variable depending upon the specifics of your emergency department visit. If you don't have a primary care physician on staff, we will provide you with a referral. We always advise you to contact your personal physician following an emergency department visit to inform them of the circumstance of the visit and for follow-up with them and/or the need for any referrals to a consulting specialist. The emergency department will also refer you to a specialist when appropriate. This referral assures that you have the opportunity for follow-up care with a specialist. All of these measure are taken in an effort to provide you with optimal care, which includes your follow-up. Under all circumstances we always encourage you to contact your private physician who remains a resource for coordinating your care. When calling for follow-up care, please make the office aware that this follow-up is from your recent emergency room visit. If for any reason you are refused follow-up, please contact the [facility] Emergency Department at and asked to speak to the emergency department charge nurse. [facility] [address] [place] [address] [id number] [address] Sepsis Event Note (ED) - Evaluation Sepsis Screening Result: No Definite Risk - Problem List & Annotations (1) Migraine SNOMED Code(s): 75369654 Code(s): G43.909 - MIGRAINE, UNSP, NOT INTRACTABLE, WITHOUT STATUS MIGRAINOSUS Status: Acute - Problem List Review Problem List Initiated/Reviewed/Updated: Yes <Vladimir Wheeler - Last Filed: 03/15/21 20:30> ED HPI GENERAL MEDICAL PROBLEM - History of Present Illness INITIAL COMMENTS - FREE TEXT/NARRATIVE: 8:20 PM: Signout received from Dr. Rodriguez at 7 PM. Patient presents ER today with headache which she reports is typical of her prior headaches in the past but has not been this bad in approximately 1 year. Patient reports that she has had headaches as bad in the past however. This is not atypical for her. Patient presents with no other new symptoms or findings such as slurring of her speech, weakness to her upper or lower extremities, double vision or blurred vision. Patient reports that she has had no prior CT scans of her head so CT of her head was obtained today in order to rule out any other acute pathology. Patient CT scan of her head today did not not reveal any significant pathology to account for her headaches. Upon reevaluation at 8:20 PM, the patient reports that her headache currently is approximately a 3 out of 10 and feels very comfortable with the plan to go home. Patient had received an extra dose of Reglan and Decadron prior to her CT scan and she reports that that has helped her significantly. Neck supple, no nuchal rigidity, no photophobia, no Kernig's sign or Brudzinski sign, patient does not present with signs or symptoms of be consistent with meningitis. Neuro: A&Ox3. Cranial nerves II-XII grossly intact, 5/5 strength to bilateral upper and lower extremities, sensation intact to bilateral upper and lower ext remities, no nystagmus, PERRLA, EOMI, normal speech, proprioception intact to bilateral lower extremities, normal finger to nose test, gait normal Tympanic membrane's pearly mclaughlin no bulging. Pupils equally round and reactive to light. Extraocular motions intact. Reassessment at the time of disposition demonstrates that the patient is in no acute distress. The patient has remained stable throughout the entire ED visit and is without objective evidence for acute process requiring urgent intervention or hospitalization. The patient is stable for discharge, counseling is provided as documented above, discussed symptomatic treatment and specific conditions for return. I have spoken with the patient/caregiver and discussed todays findings, in addition to providing specific details for the plan of care. Questions are answered and there is agreement with the plan. ED ROS GENERAL - Review of Systems Review Of Systems: See Below ED EXAM, GENERAL - Physical Exam Exam: See Below Course - Vital Signs Last Recorded V/S: Last Vital Signs Temp 96.9 F 03/15/21 17:54 Pulse 81 03/15/21 19:06 Resp 17 03/15/21 17:54 BP 128/85 03/15/21 19:06 Pulse Ox 94 L 03/15/21 19:06 - Orders/Labs/Meds Orders: Active Orders 24 hr Category Date Time Status Sodium Chloride 0.9% [Saline Flush] Med 03/15/21 18:02 Active 10 ml FLUSH ASDIRECTED PRN Sodium Chloride 0.9% [Saline Flush] Med 03/15/21 18:02 Active 2.5 ml FLUSH ASDIRECTED PRN Saline Lock Insert [OM.PC] Stat Oth 03/15/21 18:02 Ordered Medication Orders Sodium Chloride (Sodium Chloride 0.9% 10 Ml Syringe) 10 ml FLUSH ASDIRECTED PRN PRN Reason: Keep Vein Open Last Admin: 03/15/21 18:36 Dose: 10 ml Documented by: SABRINA Sodium Chloride (Sodium Chloride 0.9% 2.5 Ml Syringe) 2.5 ml FLUSH ASDIRECTED PRN PRN Reason: Keep Vein Open Last Admin: 03/15/21 18:36 Dose: 2.5 ml Documented by: SABRINA Meds: Medications Generic Name Dose Route Start Last Admin Trade Name Freq PRN Reason Stop Dose Admin Sodium Chloride 10 ml 03/15/21 18:02 03/15/21 18:36 Sodium Chloride 0.9% 10 Ml Syringe FLUSH 10 ml ASDIRECTED PRN Administration Keep Vein Open Sodium Chloride 2.5 ml 03/15/21 18:02 03/15/21 18:36 Sodium Chloride 0.9% 2.5 Ml Syringe FLUSH 2.5 ml ASDIRECTED PRN Administration Keep Vein Open Discontinued Medications Generic Name Dose Route Start Last Admin Trade Name Freq PRN Reason Stop Dose Admin Dexamethasone 4 mg 03/15/21 19:13 03/15/21 19:40 Dexamethasone 4 Mg/Ml Sdv IVPUSH 03/15/21 19:14 4 mg ONETIME ONE Administration Diphenhydramine HCl 50 mg 03/15/21 18:02 03/15/21 18:35 Diphenhydramine 50 Mg/Ml Sdv IVPUSH 03/15/21 18:03 50 mg ONETIME ONE Administration Sodium Chloride 1,000 mls @ 999 mls/hr 03/15/21 19:13 03/15/21 19:40 Normal Saline IV 03/15/21 20:13 999 mls/hr .Bolus ONE Administration Ketorolac Tromethamine 15 mg 03/15/21 18:02 03/15/21 18:14 Ketorolac 15 Mg/Ml Sdv IVPUSH 03/15/21 18:03 Not Given ONETIME ONE Ketorolac Tromethamine 15 mg 03/15/21 18:15 03/15/21 18:35 Ketorolac 30 Mg/Ml Sdv IVPUSH 03/15/21 18:16 15 mg ONETIME STA Administration Metoclopramide HCl 10 mg 03/15/21 19:13 03/15/21 19:40 Metoclopramide 10 Mg/2 Ml Sdv IVPUSH 03/15/21 19:14 10 mg ONETIME ONE Administration Ondansetron HCl 4 mg 03/15/21 18:02 03/15/21 18:35 Ondansetron 4 Mg/2 Ml Sdv IVPUSH 03/15/21 18:03 4 mg ONETIME ONE Administration Departure - Departure Time of Disposition: 20:30 Condition: Good Sepsis Event Note (ED) - Focused Exam Vital Signs: Vital Signs Temp Pulse Resp BP Pulse Ox 03/15/21 19:06 81 128/85 94 L 03/15/21 17:54 96.9 F 89 17 130/86 97
[2021-03-15] MEDS ORDERED: Ketorolac 30 MG/ML SDV IVPUSH STA (18:15)
[2021-03-15] MEDS ORDERED: Metoclopramide 10 MG/2 ML SDV IVPUSH ONE (19:13)
[2021-03-15] MEDS ORDERED: Sodium Chloride 0.9% 1,000 ML IV ONE (19:13)
[2021-03-15] MEDS ORDERED: Dexamethasone 4 MG/ML SDV IVPUSH ONE (19:13)
--- NOTE | 2021-03-15 20:06 | CT ---
INDICATION: Migraines. TECHNIQUE: CT of the head without contrast. Coronal and sagittal reformats are included. COMPARISON: None. FINDINGS: No CT evidence of acute cortical infarct. No loss of barillas white matter differentiation. No hyperdense vessels to suggest intracranial thrombus. No acute intracranial hemorrhage. No mass effect or midline shift. Mild parenchymal volume loss with slightly prominent ventricular system white matter is within normal limits for age. No acute osseous abnormalities. Mastoid air cells and paranasal sinuses are clear. Normal soft tissues. IMPRESSION: 1. No acute infarction hemorrhage or other acute intracranial pathology. 2. Mild parenchymal volume loss with slightly prominent ventricular system. Greater than typical for age. Please note that all CT scans at this facility use dose modulation, iterative reconstruction, and/or weight-based dosing when appropriate to reduce radiation dose to as low as reasonably achievable. Dictated by Teo Horn MD @ 03/15/2021 8:05:01 PM (Electronically Signed)
[2021-03-15 20:47] VITALS: BP 134/73; PULSE 79
== END 2021-03-15 20:47 | disposition home or self-care (01) ==
LOC: MW.ED 17:16
DX: G43.909 Migraine, unspecified, not intractable, without status migrainosus (principal); Z88.2 Allergy status to sulfonamides; Z88.7 Allergy status to serum and vaccine
CPT/HCPCS: 70450; 96374; 96375; 99283; J1100; J1200; J1885; J2405; J2765; J7030

== ENCOUNTER 2023-01-24 19:49 | Emergency (ER) | payer BC ==
[2023-01-24] MEDS ORDERED: Sodium Chloride 0.9% 10 ML Syringe FLUSH PRN (20:24)
[2023-01-24] MEDS ORDERED: Dexamethasone 10 MG/ML SDV IVPUSH ONE (20:24)
[2023-01-24] MEDS ORDERED: Metoclopramide 10 MG/2 ML SDV IVPUSH ONE (20:24)
[2023-01-24] MEDS ORDERED: Ketorolac 30 MG/ML SDV IVPUSH ONE (20:24)
[2023-01-24] MEDS ORDERED: Sodium Chloride 0.9% 2.5 ML Syringe FLUSH PRN (20:24)
[2023-01-24] MEDS ORDERED: diphenhydrAMINE 50 MG/ML SDV IVPUSH ONE (20:24)
[2023-01-24] MEDS ORDERED: Sodium Chloride 0.9% 1,000 ML IV ONE (20:39)
[2023-01-24 20:54] LABS: BASOPHILS ABSOLUTE AUTO 0.01 K/uL (0.00-0.20); BASOPHILS PERCENT AUTO 0.1 % (0.0-1.0); EOSINOPHILS ABSOLUTE AUTO 0.04 K/uL (0.00-0.45); EOSINOPHILS PERCENT AUTO 0.4 % (0.0-6.0); HEMATOCRIT 49.8 % (37.0-47.0); HEMOGLOBIN 17.4 g/dL (12.0-16.0); IMMATURE GRAN ABSOLUTE AUTO 0.02 K/uL (0.00-0.05); IMMATURE GRAN PERCENT AUTO 0.2 % (0.0-0.4); LYMPHOCYTES ABSOLUTE AUTO 3.05 K/uL (1.00-4.80); LYMPHOCYTES PERCENT AUTO 31.6 % (24.0-44.0); MEAN CORPUSCULAR HEMOGLOBIN 29.9 pg (28.0-32.0); MEAN CORPUSCULAR HGB CONC 34.9 g/dL (32.0-36.0); MEAN CORPUSCULAR VOLUME 85.6 fL (83.0-99.0); MEAN PLATELET VOLUME 9.7 fL (9.4-12.3); MONOCYTES ABSOLUTE AUTO 0.63 K/uL (0.00-0.80); MONOCYTES PERCENT AUTO 6.5 % (0.0-8.0); NEUTROPHILS PERCENT AUTO 61.2 % (41.0-71.0); PLATELET COUNT,PLT 462 K/uL (150-400); RED BLOOD CELL COUNT 5.82 M/uL (4.10-5.30); WHITE BLOOD CELL COUNT,WBC 9.65 K/uL (3.9-11.3)
[2023-01-24 21:40] LABS: BILIRUBIN TOTAL 0.7 mg/dL (0.2-1.0); CARBON DIOXIDE,CO2 26.3 mmol/L (21.0-32.0); CREATININE 0.9 mg/dL (0.6-1.0); EST CRCL DRUG DOSING (CG) 65.72 mL/min; POTASSIUM,K 3.7 mmol/L (3.5-5.1); PROTEIN TOTAL,TP 8.2 g/dL (6.4-8.2)
[2023-01-24 22:15] VITALS: BP 137/81; PULSE 77
== END 2023-01-24 22:15 | disposition home or self-care (01) ==
LOC: MW.ED 19:49
DX: G43.909 Migraine, unspecified, not intractable, without status migrainosus (principal); K21.9 Gastro-esophageal reflux disease without esophagitis; Z79.899 Other long term (current) drug therapy; Z88.2 Allergy status to sulfonamides; Z88.7 Allergy status to serum and vaccine
CPT/HCPCS: 36415; 80053; 85025; 96361; 96374; 96375; 99284; J1100; J1200; J1885; J2765; J3490; J7030